=== PATIENT | male | born 1970 | race African-American/Black ===

== ENCOUNTER 2017-05-20 23:30 | Emergency (ER) | payer SELFPAY ==
[2017-05-21 00:53] LABS: ADD MAN DIFF? NO
[2017-05-21] MEDS: FAMOTIDINE 20 MG/2 ML VIAL IVP ×2 (00:54→01:32)
[2017-05-21] MEDS: ONDANSETRON PF 4 MG/2 ML VIAL. IV (00:54)
[2017-05-21 00:57] LABS: BASO # 0.1 x10^3/uL (0.0-0.2); BASO % 1 % (0-3); EOS % 0 % (0-3); HEMATOCRIT 46.7 % (39.0-53.0); HEMOGLOBIN 15.9 g/dL (13.0-17.5); LYMPH # 1.8 x10^3/uL (1.0-4.8); LYMPH % 16 % (24-48); MEAN CORPUSCULAR HEMOGLOBIN 29 pg (25-35); MEAN CORPUSCULAR HGB CONC 34 g/dL (31-37); MEAN CORPUSCULAR VOLUME 84 fL (79-100); MONO # 0.7 x10^3/uL (0.0-1.1); MONO % 6 % (0-9); NEUT # 9.1 x10^3uL (1.8-7.7); NEUT % 77 % (31-73); PLATELET COUNT 311 x10^3/uL (140-400); RED BLOOD COUNT 5.57 x10^6/uL (4.30-5.70); RED CELL DISTRIBUTION WIDTH 14.4 % (11.5-14.5); WHITE BLOOD COUNT 11.8 x10^3/uL (4.0-11.0)
[2017-05-21 01:03] LABS: ANION GAP 16 (6-14); BLOOD UREA NITROGEN 11 mg/dL (8-26); BUN/CREATININE RATIO 11 (6-20); CALCIUM 9.5 mg/dL (8.5-10.1); CARBON DIOXIDE 26 mmol/L (21-32); CHLORIDE 99 mmol/L (98-107); GFR 97.8; GLUCOSE 138 mg/dL (70-99); POTASSIUM 4.1 mmol/L (3.5-5.1); SODIUM 141 mmol/L (136-145)
[2017-05-21 01:10] LABS: ALBUMIN 4.4 g/dL (3.4-5.0); ALBUMIN/GLOBULIN RATIO 0.8 (1.0-1.7); ALK PHOS 153 U/L (46-116); ALT (SGPT) 43 U/L (16-63); AST (SGOT) 30 U/L (15-37); TOTAL BILIRUBIN 0.8 mg/dL (0.2-1.0); TOTAL PROTEIN 9.7 g/dL (6.4-8.2)
[2017-05-21 01:12] LABS: TROPONINI < 0.017 ng/mL (0.000-0.055)
[2017-05-21 01:35] LABS: LIPASE 266 U/L (73-393)
== END 2017-05-21 02:02 | disposition home or self-care (01) ==
LOC: ER 05-21 02:02
DX: R11.2 Nausea with vomiting, unspecified (principal); R10.33 Periumbilical pain; F41.9 Anxiety disorder, unspecified; F32.9 Major depressive disorder, single episode, unspecified; I10 Essential (primary) hypertension; G89.29 Other chronic pain; Z88.0 Allergy status to penicillin; Z88.5 Allergy status to narcotic agent; Z91.030 Bee allergy status; Z91.02 Food additives allergy status
CPT/HCPCS: 36415; 80053; 83690; 84484; 85025; 96374; 96375; 96376; 99284-25; 99285; J2405; S0028

== ENCOUNTER 2018-09-08 10:56 | Inpatient (IN) | payer MEDICAID, MEDICARE, SELFPAY ==
[~2018-09-08] VITALS: Ht 182.9 cm; Wt 122.0 kg
[~2018-09-08 10:56] MED LIST: CYCL10TA2 PO; DULO60CA6 PO; FAMO-63 PO; GABA800T5 PO; IBUP-1060 PO; ONDA4TAB7 PO
[2018-09-08] MEDS ORDERED: ONDANSETRON PF 4 MG/2 ML VIAL. IV ONE (11:15)
[2018-09-08] MEDS ORDERED: fentaNYL PF VIAL 100 MCG/2 ML VIAL IV ONE ×2 (11:15→12:45)
--- NOTE | 2018-09-08 11:26 | PHYS DOC ---
Past Medical History Past Medical History: Anxiety, Bronchitis, Depression, Hypertension, Other Additional Past Medical Histor: CHRONIC BACK PAIN (EBONY SERNA APRN) Past Surgical History: Other Additional Past Surgical Histo: KNEE, lumbar fusion (EBONY SERNA APRN) Alcohol Use: None Drug Use: None (EBONY SERNA APRN) Adult General Chief Complaint Chief Complaint: TESTICULAR PAIN OR INJURY HPI HPI Patient is a 48 year old male with history of hypertension, depression, anxiety, who presents to the ED today complaining of moderate pain to the left groin that began this morning after he fell down 2 steps. He states he was going to the bathroom when he slid on a towel on the staircase falling stretching his left leg outward. Patient denies any loss of consciousness. Denies any difficulty voiding or hematuria. Denies any back pain. He states his groin pain is worse on extension of the leg. (EBONY SERNA APRN) Review of Systems Review of Systems Constitutional: Denies fever or chills [] Eyes: Denies change in visual acuity, redness, or eye pain [] HENT: Denies nasal congestion or sore throat [] Respiratory: Denies cough or shortness of breath [] Cardiovascular: No additional information not addressed in HPI [] GI: Denies abdominal pain, nausea, vomiting, bloody stools or diarrhea [] : Denies dysuria or hematuria [] Male :reports left groin pain Musculoskeletal: Denies back pain or joint pain [] Integument: Denies rash or skin lesions [] Neurologic: Denies headache, focal weakness or sensory changes [] All other systems were reviewed and found to be within normal limits, except as documented in this note. (EBONY SERNA APRN) Current Medications Current Medications Current Medications Medications (Trade) Dose Ordered Sig/Mariah Start Time Stop Time Status Last Admin Dose Admin Diazepam (Valium) 5 mg 1X ONCE 09/08/18 14:15 09/08/18 14:18 DC 09/08/18 14:49 5 MG Fentanyl Citrate (Fentanyl 2ml Vial) 50 mcg 1X ONCE 09/08/18 12:45 09/08/18 12:46 DC 09/08/18 13:02 50 MCG Info (CONTRAST GIVEN -- Rx MONITORING) 1 each PRN DAILY PRN 09/08/18 12:15 09/10/18 12:14 Iohexol (Omnipaque 300 Mg/ml) 75 ml 1X ONCE 09/08/18 12:15 09/08/18 12:16 DC 09/08/18 12:33 75 ML Morphine Sulfate (Morphine Sulfate) 5 mg 1X ONCE 09/08/18 14:15 09/08/18 14:18 DC 09/08/18 14:49 5 MG Ondansetron HCl (Zofran) 4 mg 1X ONCE 09/08/18 11:15 09/08/18 11:27 DC 09/08/18 11:39 4 MG Sodium Chloride 1,000 ml @ 100 mls/hr Q10H 09/08/18 14:52 09/08/18 14:52 100 MLS/HR (BROOKLYN VARELA MD) Allergies Allergies Allergies Coded Allergies Type Severity Reaction Last Updated Verified Penicillins Allergy Intermediate 01/26/15 No chocolate flavor Allergy Intermediate 05/01/17 No venom-honey bee Allergy Intermediate 01/26/15 No (BROOKLYN VARELA MD) Physical Exam Physical Exam Constitutional: Well developed, well nourished, no acute distress, non-toxic appearance. [] HENT: Normocephalic, atraumatic, bilateral external ears normal, oropharynx moist, no oral exudates, nose normal. [] Eyes: PERRLA, EOMI, conjunctiva normal, no discharge. [] Neck: Normal range of motion, no tenderness, supple, no stridor. [] Cardiovascular:Heart rate regular rhythm, no murmur [] Lungs & Thorax: Bilateral breath sounds clear to auscultation [] Abdomen: Bowel sounds normal, soft, no tenderness, no masses, no pulsatile masses. [] Male : external scrotum with no acute findings. Two descended testicles. No testicular masses. Tenderness on palpation of the left groin region. Skin: Warm, dry, no erythema, no rash. [] Back: No tenderness, no CVA tenderness. [] Extremities: No tenderness, no cyanosis, no clubbing, ROM intact, no edema. [] Neurologic: Alert and oriented X 3, normal motor function, normal sensory function, no focal deficits noted. [] Psychologic: Affect normal, judgement normal, mood normal. [] (EBONY SERNA APRN) Current Patient Data Vital Signs Vital Signs Date Time Temp Pulse Resp B/P (MAP) Pulse Ox O2 Delivery O2 Flow Rate FiO2 09/08/18 14:00 74 118/68 (85) 96 Room Air 09/08/18 11:12 97.8 20 97.8 (BROOKLYN VARELA MD) Lab Values Laboratory Tests Test 09/08/18 11:30 09/08/18 13:15 White Blood Count 7.9 x10^3/uL (4.0-11.0) Red Blood Count 5.27 x10^6/uL (4.30-5.70) Hemoglobin 14.7 g/dL (13.0-17.5) Hematocrit 44.3 % (39.0-53.0) Mean Corpuscular Volume 84 fL (79-100) Mean Corpuscular Hemoglobin 28 pg (25-35) Mean Corpuscular Hemoglobin Concent 33 g/dL (31-37) Red Cell Distribution Width 14.3 % (11.5-14.5) Platelet Count 254 x10^3/uL (140-400) Neutrophils (%) (Auto) 61 % (31-73) Lymphocytes (%) (Auto) 30 % (24-48) Monocytes (%) (Auto) 7 % (0-9) Eosinophils (%) (Auto) 2 % (0-3) Basophils (%) (Auto) 1 % (0-3) Neutrophils # (Auto) 4.8 x10^3uL (1.8-7.7) Lymphocytes # (Auto) 2.3 x10^3/uL (1.0-4.8) Monocytes # (Auto) 0.6 x10^3/uL (0.0-1.1) Eosinophils # (Auto) 0.1 x10^3/uL (0.0-0.7) Basophils # (Auto) 0.1 x10^3/uL (0.0-0.2) Sodium Level 140 mmol/L (136-145) Potassium Level 4.2 mmol/L (3.5-5.1) Chloride Level 101 mmol/L (98-107) Carbon Dioxide Level 30 mmol/L (21-32) Anion Gap 9 (6-14) Blood Urea Nitrogen 12 mg/dL (8-26) Creatinine 1.1 mg/dL (0.7-1.3) Estimated GFR (Cockcroft-Gault) 87.2 BUN/Creatinine Ratio 11 (6-20) Glucose Level 143 mg/dL (70-99) H Calcium Level 9.7 mg/dL (8.5-10.1) Iron Level 74 ug/dL (65-175) Total Iron Binding Capacity 388 ug/dL (250-450) Iron Saturation 19 % (15-34) Total Bilirubin 0.6 mg/dL (0.2-1.0) Aspartate Amino Transferase (AST) 82 U/L (15-37) H Alanine Aminotransferase (ALT) 135 U/L (16-63) H Alkaline Phosphatase 124 U/L (46-116) H Total Protein 8.6 g/dL (6.4-8.2) H Albumin 4.0 g/dL (3.4-5.0) Albumin/Globulin Ratio 0.9 (1.0-1.7) L Lipase 901 U/L (73-393) H Ethyl Alcohol Level < 10 mg/dL (0-10) Urine Collection Type Unknown Urine Color Yellow Urine Clarity Clear Urine pH 6.5 Urine Specific [place] >=1.030 Urine Protein Negative mg/dL (NEG-TRACE) Urine Glucose (UA) Negative mg/dL (NEG) Urine Ketones (Stick) Negative mg/dL (NEG) Urine Blood Negative (NEG) Urine Nitrite Negative (NEG) Urine Bilirubin Negative (NEG) Urine Urobilinogen Dipstick 1.0 mg/dL (0.2 mg/dL) Urine Leukocyte Esterase Negative (NEG) Urine RBC Rare /HPF (0-2) Urine WBC 0 /HPF (0-4) Urine Squamous Epithelial Cells Occ /LPF Urine Bacteria 0 /HPF (0-FEW) Urine Opiates Screen Pos (NEG) Urine Methadone Screen Neg (NEG) Urine Barbiturates Neg (NEG) Urine Phencyclidine Screen Neg (NEG) Urine Amphetamine/Methamphetamine Neg (NEG) Urine Benzodiazepines Screen Neg (NEG) Urine Cocaine Screen Neg (NEG) Urine Cannabinoids Screen Neg (NEG) Urine Ethyl Alcohol Neg (NEG) Laboratory Tests 09/08/18 11:30 Laboratory Tests 09/08/18 11:30 (BROOKLYN VARELA MD) Lab Values Laboratory Tests Test 09/08/18 11:30 09/08/18 13:15 White Blood Count 7.9 x10^3/uL (4.0-11.0) Red Blood Count 5.27 x10^6/uL (4.30-5.70) Hemoglobin 14.7 g/dL (13.0-17.5) Hematocrit 44.3 % (39.0-53.0) Mean Corpuscular Volume 84 fL (79-100) Mean Corpuscular Hemoglobin 28 pg (25-35) Mean Corpuscular Hemoglobin Concent 33 g/dL (31-37) Red Cell Distribution Width 14.3 % (11.5-14.5) Platelet Count 254 x10^3/uL (140-400) Neutrophils (%) (Auto) 61 % (31-73) Lymphocytes (%) (Auto) 30 % (24-48) Monocytes (%) (Auto) 7 % (0-9) Eosinophils (%) (Auto) 2 % (0-3) Basophils (%) (Auto) 1 % (0-3) Neutrophils # (Auto) 4.8 x10^3uL (1.8-7.7) Lymphocytes # (Auto) 2.3 x10^3/uL (1.0-4.8) Monocytes # (Auto) 0.6 x10^3/uL (0.0-1.1) Eosinophils # (Auto) 0.1 x10^3/uL (0.0-0.7) Basophils # (Auto) 0.1 x10^3/uL (0.0-0.2) Sodium Level 140 mmol/L (136-145) Potassium Level 4.2 mmol/L (3.5-5.1) Chloride Level 101 mmol/L (98-107) Carbon Dioxide Level 30 mmol/L (21-32) Anion Gap 9 (6-14) Blood Urea Nitrogen 12 mg/dL (8-26) Creatinine 1.1 mg/dL (0.7-1.3) Estimated GFR (Cockcroft-Gault) 87.2 BUN/Creatinine Ratio 11 (6-20) Glucose Level 143 mg/dL (70-99) H Calcium Level 9.7 mg/dL (8.5-10.1) Iron Level 74 ug/dL (65-175) Total Iron Binding Capacity 388 ug/dL (250-450) Iron Saturation 19 % (15-34) Total Bilirubin 0.6 mg/dL (0.2-1.0) Aspartate Amino Transferase (AST) 82 U/L (15-37) H Alanine Aminotransferase (ALT) 135 U/L (16-63) H Alkaline Phosphatase 124 U/L (46-116) H Total Protein 8.6 g/dL (6.4-8.2) H Albumin 4.0 g/dL (3.4-5.0) Albumin/Globulin Ratio 0.9 (1.0-1.7) L Lipase 901 U/L (73-393) H Ethyl Alcohol Level < 10 mg/dL (0-10) Urine Collection Type Unknown Urine Color Yellow Urine Clarity Clear Urine pH 6.5 Urine Specific [place] >=1.030 Urine Protein Negative mg/dL (NEG-TRACE) Urine Glucose (UA) Negative mg/dL (NEG) Urine Ketones (Stick) Negative mg/dL (NEG) Urine Blood Negative (NEG) Urine Nitrite Negative (NEG) Urine Bilirubin Negative (NEG) Urine Urobilinogen Dipstick 1.0 mg/dL (0.2 mg/dL) Urine Leukocyte Esterase Negative (NEG) Urine RBC Rare /HPF (0-2) Urine WBC 0 /HPF (0-4) Urine Squamous Epithelial Cells Occ /LPF Urine Bacteria 0 /HPF (0-FEW) Urine Opiates Screen Pos (NEG) Urine Methadone Screen Neg (NEG) Urine Barbiturates Neg (NEG) Urine Phencyclidine Screen Neg (NEG) Urine Amphetamine/Methamphetamine Neg (NEG) Urine Benzodiazepines Screen Neg (NEG) Urine Cocaine Screen Neg (NEG) Urine Cannabinoids Screen Neg (NEG) Urine Ethyl Alcohol Neg (NEG) Laboratory Tests 09/08/18 11:30 Laboratory Tests 09/08/18 11:30 (EBONY SERNA APRN) EKG EKG [] (EBONY SERNA APRN) Radiology/Procedures Radiology/Procedures []PROCEDURE: CT ABD PELV W/ IV CONTRST ONLY Examination: CT of the abdomen pelvis with IV contrast HISTORY: History of fall, left testicular pain COMPARISON: None TECHNIQUE: Axial CT images of the abdomen pelvis were performed with IV contrast. Coronal and sagittal reformatted performed Exposure: One or more of the following individualized dose reduction techniques were utilized for this examination: 1. Automated exposure control 2. Adjustment of the mA and/or kV according to patient size 3. Use of iterative reconstruction technique FINDINGS: The bibasilar lungs are clear. No evidence of free air identified in the abdomen. There is diffuse decreased attenuation noted in the liver likely hepatic steatosis. Mild hepatomegaly. The visualized spleen, right adrenal grossly appears unremarkable. There is a small nodule identified in the left adrenal gland measuring 1 cm measuring 56 Hounsfield units. The small bowel is nondilated. Feces and gas noted in the colon. The visualized pancreas grossly appears unremarkable. Urinary bladder is mildly distended. The bilateral kidneys enhance symmetrically. The urinary bladder is mildly distended. The caliber of the aorta grossly appears unremarkable. Mild degenerative changes thoracolumbar spine. Posterior cervical fusion hardware identified at L3, L4, L5 vertebral levels with intervertebral disc spacers at L3-L4, L4-L5 vertebral levels. Laminectomy changes identified at these levels. IMPRESSION: 1. No acute intra-abdominal findings. 2. Hepatic steatosis. 3. 1 cm nodule identified in the left adrenal gland, difficult to characterize given the size. Follow-up nonemergent adrenal CT protocol can be considered. Electronically signed by: Josh Solano MD (09/08/2018 12:47 PM) [facility] DICTATED and SIGNED BY: JOSH SOLANO MD DATE: 09/08/18 1247 PROCEDURE: TESTICULAR/SCROTUM Testicular ultrasound dated 09/08/2018. No comparison available. Clinical data indication: Pain after fall. Left groin pain. FINDINGS: Right testicle measures 4.7 x 3.0 x 2.8 cm. Left testicle measures 4.4 x 3.3 x 2.6 cm. No focal testicular mass. Normal color Doppler flow and waveforms to both testicles. Epididymides are unremarkable. No significant hydrocele or varicocele. No apparent inguinal hernia or focal fluid collection. IMPRESSION: Negative testicular ultrasound. Electronically signed by: Pillo Castillo MD (09/08/2018 12:11 PM) [facility] DICTATED and SIGNED BY: PILLO CASTILLO MD DATE: 09/08/18 1211 (EBONY SERNA APRN) Course & Med Decision Making Course & Med Decision Making Pertinent Labs and Imaging studies reviewed. (See chart for details) This is a 48-year-old male patient who presents to the ED today complaining of left groin pain after falling down 2 steps. No loss of consciousness. Testicular/scrotal ultrasound is negative for any acute findings. CT of the abdomen and pelvic was negative for any acute findings. CBC with normal WBC, urine analysis is negative for blood or infection. Lipase 901. Patient denies an y history of alcohol abuse. CMP with AST of 82, ALT 135 ALK [address] Hollingsworth who accepted patient for admission. Routine consult placed for GI. (EBONY SERNA APRN) Course & Med Decision Making This patient was seen by an DORIE. I did not evaluate the patient unless otherwise specified. (BROOKLYN VARELA MD) Dragon Disclaimer Dragon Disclaimer This electronic medical record was generated, in whole or in part, using a voice recognition dictation system. (EBONY SERNA APRN) Departure Departure Impression: Primary Impression: Pancreatitis Additional Impressions: Strain of groin Fall down steps Disposition: 09 ADMITTED INPATIENT Condition: STABLE Referrals: NO PCP (PCP) Problem Qualifiers Primary Impression: Pancreatitis Chronicity: acute Pancreatitis type: alcohol induced Acute pancreatitis complication: unspecified Qualified Codes: K85.20 - Alcohol induced acute pancreatitis without necrosis or infection Additional Impressions: Strain of groin Encounter type: initial encounter Laterality: left Qualified Codes: S76.212A - Strain of adductor muscle, fascia and tendon of left thigh, ini tial encounter Fall down steps Encounter type: initial encounter Qualified Codes: W10.8XXA - Fall (on) (from) other stairs and steps, initial encounter EBONY SERNA APRN September 08, 2018 11:25 BROOKLYN VARELA MD September 08, 2018 18:45
[2018-09-08 11:40] LABS: BASO # 0.1 x10^3/uL (0.0-0.2); BASO % 1 % (0-3); EOS # 0.1 x10^3/uL (0.0-0.7); EOS % 2 % (0-3); HEMATOCRIT 44.3 % (39.0-53.0); HEMOGLOBIN 14.7 g/dL (13.0-17.5); LYMPH # 2.3 x10^3/uL (1.0-4.8); LYMPH % 30 % (24-48); MEAN CORPUSCULAR HEMOGLOBIN 28 pg (25-35); MEAN CORPUSCULAR HGB CONC 33 g/dL (31-37); MEAN CORPUSCULAR VOLUME 84 fL (79-100); MONO # 0.6 x10^3/uL (0.0-1.1); MONO % 7 % (0-9); NEUT # 4.8 x10^3uL (1.8-7.7); NEUT % 61 % (31-73); PLATELET COUNT 254 x10^3/uL (140-400); RED BLOOD COUNT 5.27 x10^6/uL (4.30-5.70); RED CELL DISTRIBUTION WIDTH 14.3 % (11.5-14.5); WHITE BLOOD COUNT 7.9 x10^3/uL (4.0-11.0)
[2018-09-08 11:49] LABS: CALCIUM 9.7 mg/dL (8.5-10.1); CREATININE 1.1 mg/dL (0.7-1.3); GFR 87.2; POTASSIUM 4.2 mmol/L (3.5-5.1)
[2018-09-08 11:55] LABS: ALBUMIN/GLOBULIN RATIO 0.9 (1.0-1.7); TOTAL BILIRUBIN 0.6 mg/dL (0.2-1.0); TOTAL PROTEIN 8.6 g/dL (6.4-8.2)
--- NOTE | 2018-09-08 12:14 | RAD ---
Testicular ultrasound dated 09/08/2018. No comparison available. Clinical data indication: Pain after fall. Left groin pain. FINDINGS: Right testicle measures 4.7 x 3.0 x 2.8 cm. Left testicle measures 4.4 x 3.3 x 2.6 cm. No focal testicular mass. Normal color Doppler flow and waveforms to both testicles. Epididymides are unremarkable. No significant hydrocele or varicocele. No apparent inguinal hernia or focal fluid collection. IMPRESSION: Negative testicular ultrasound. Electronically signed by: Pillo Castillo MD (09/08/2018 12:11 PM) [facility]
[2018-09-08] MEDS ORDERED: CONTRAST GIVEN. MC PRN (12:15)
[2018-09-08] MEDS ORDERED: IOHEXOL 300 MG/ML 100ML VIAL. IV ONE (12:15)
--- NOTE | 2018-09-08 12:50 | RAD ---
Examination: CT of the abdomen pelvis with IV contrast HISTORY: History of fall, left testicular pain COMPARISON: None TECHNIQUE: Axial CT images of the abdomen pelvis were performed with IV contrast. Coronal and sagittal reformatted performed Exposure: One or more of the following individualized dose reduction techniques were utilized for this examination: 1. Automated exposure control 2. Adjustment of the mA and/or kV according to patient size 3. Use of iterative reconstruction technique FINDINGS: The bibasilar lungs are clear. No evidence of free air identified in the abdomen. There is diffuse decreased attenuation noted in the liver likely hepatic steatosis. Mild hepatomegaly. The visualized spleen, right adrenal grossly appears unremarkable. There is a small nodule identified in the left adrenal gland measuring 1 cm measuring 56 Hounsfield units. The small bowel is nondilated. Feces and gas noted in the colon. The visualized pancreas grossly appears unremarkable. Urinary bladder is mildly distended. The bilateral kidneys enhance symmetrically. The urinary bladder is mildly distended. The caliber of the aorta grossly appears unremarkable. Mild degenerative changes thoracolumbar spine. Posterior cervical fusion hardware identified at L3, L4, L5 vertebral levels with intervertebral disc spacers at L3-L4, L4-L5 vertebral levels. Laminectomy changes identified at these levels. IMPRESSION: 1. No acute intra-abdominal findings. 2. Hepatic steatosis. 3. 1 cm nodule identified in the left adrenal gland, difficult to characterize given the size. Follow-up nonemergent adrenal CT protocol can be considered. Electronically signed by: Josh Solano MD (09/08/2018 12:47 PM) [place] [id number]
[2018-09-08 13:23] LABS: BILIRUBIN,URINE NEGATIVE (NEG); CLARITY,URINE CLEAR; COLOR,URINE YELLOW; NITRITE,URINE NEGATIVE (NEG); PH,URINE 6.5; PROTEIN,URINE NEGATIVE (NEG-TRACE)
[2018-09-08 13:27] LABS: BARBITURATES NEG (NEG); BENZODIAZEPINES NEG (NEG); CANNABINOIDS NEG (NEG); COCAINE NEG (NEG); METHADONE NEG (NEG); OPIATES POS (NEG); PHENCYCLIDINE NEG (NEG)
[2018-09-08 13:37] LABS: AMPHETAMINE/METHAMPHETAMINE NEG (NEG)
[2018-09-08 13:46] LABS: BACTERIA,URINE 0 /HPF (0-FEW); RBC,URINE RARE /HPF (0-2); SQUAMOUS EPITHELIAL CELL,UR OCC /LPF; WBC,URINE 0 /HPF (0-4)
[2018-09-08] MEDS ORDERED: MORPHINE SULFATE 10 MG/ML VIAL. IV ONE (14:15)
[2018-09-08] MEDS ORDERED: diazePAM 5 MG TABLET PO ONE (14:15)
[2018-09-08] MEDS: IV NORMAL SALINE 1000ML BAG 1,000 ML IV SCH (14:52)
[2018-09-08] MEDS ORDERED: LORazepam 0.5 MG TABLET PO PRN (15:00)
[2018-09-08] MEDS ORDERED: cloNIDine HCL 0.1 MG TABLET PO PRN (15:00)
[2018-09-08] MEDS ORDERED: SODIUM PHOSPHATES 19/7GM 133 ML ENEMA. PR PRN (15:00)
[2018-09-08] MEDS ORDERED: guaiFENesin ORAL 200 MG/10 ML LIQUID. PO PRN (15:00)
[2018-09-08] MEDS ORDERED: ALBUTEROL SULFATE 2.5 MG/3 ML NEBU. NEB PRN (15:00)
[2018-09-08] MEDS ORDERED: ONDANSETRON PF 4 MG/2 ML VIAL. IV PRN ×2 (15:00→16:15)
[2018-09-08] MEDS ORDERED: MAG HYDROX/ALUMINUM HYD/SIMETH 30 ML ORAL.SUSP PO PRN (15:00)
[2018-09-08] MEDS ORDERED: ACETAMINOPHEN 325 MG TABLET. PO PRN ×2 (15:00→16:15)
[2018-09-08] MEDS ORDERED: ZOLPIDEM 5 MG TABLET. PO PRN (15:00)
[2018-09-08] MEDS ORDERED: DOCUSATE SODIUM 100 MG CAPSULE. PO PRN (15:00)
[2018-09-08] MEDS ORDERED: IV NORMAL SALINE 1000ML BAG 1,000 ML IV ONE (16:15)
[2018-09-08 16:20] VITALS: BP 121/70
[2018-09-08] MEDS: MORPHINE SULFATE 4 MG/ML VIAL. IV PRN ×3 (16:31→21:08)
[2018-09-08] MEDS: ENOXAPARIN 40 MG/0.4 ML SYRINGE. SQ SCH (16:47)
--- NOTE | 2018-09-08 17:50 | PDOC2 ---
GI CONSULT Reason For Consult: Elevated lipase HPI: HPI: 48 y/o male admitted through ER. Fell down the steps last night and did the splits, has significant burning pain to left side into left groin. GI-de leon, he reports a variety of symptoms. He has recent had some reflux that is not really improved w/ Tums. No dysphagia. Occasional nausea and dizziness, but no vomiting. Tolerating diet, but eating causes "sharp" mid right abdominal and RLQ pain - and after thinking about it, some LLQ pain too. This pain, which began ~1 week ago without precipitating events, is also worse with stooling. Long history of "slow bowels" (says it takes a long time to have a bowel movement) but for the past week has had to strain. Describes stools as formed and long. This week, he has also noted associated bright red blood - on the tissue and surrounding the stool. No melena. Has gained weight. Good appetite - just ate something his family brought to his room. He has been fatigued - sleeping more during the day but awake during the night. EGD w/ Dr. Ocampo in 07/2002 for abd pain and n/v showed normal esophagus, H. pylori negative gastritis and two non-bleeding superficial duodenal ulcers. He remembers taking Nexium for awhile. No previous colonoscopy. Denies liver, pancreas, and GB history. On disability for chronic back pain. Takes morphine, Flexeril, and Neurontin - no NSAIDs. PMH: PMH: HTN, anxiety/depression, chronic pain bilateral knee surgeries, lumbar fusion FH: Family History: Cancer (mother and MGM - unknown kind), Other (sister - gallbladder disease) Social History: Smoke: Quit ALCOHOL: other (some heavy drinking "back in the day," now none) Drugs: Other (marijuana in the past, none now) ROS: GEN: Denies fevers, chills, sweats HEENT: Denies blurred vision, sore throat CV: Denies chest pain RESP: Denies shortness of air, cough GI: Per HPI : Denies hematuria, dysuria ENDO: +weight gain NEURO: Denies confusion, dizziness MSK: Denies weakness, joint pain/swelling SKIN: Denies jaundice, pruritus Vitals: Vitals: Vital Signs Date Time Temp Pulse Resp B/P (MAP) Pulse Ox O2 Delivery O2 Flow Rate FiO2 5/15/19 17:25 97 Room Air 09/08/18 16:20 97.9 74 20 121/70 (87) 97.9 Labs: Labs: Laboratory Tests Test 09/08/18 11:30 09/08/18 13:15 White Blood Count 7.9 x10^3/uL (4.0-11.0) Red Blood Count 5.27 x10^6/uL (4.30-5.70) Hemoglobin 14.7 g/dL (13.0-17.5) Hematocrit 44.3 % (39.0-53.0) Mean Corpuscular Volume 84 fL (79-100) Mean Corpuscular Hemoglobin 28 pg (25-35) Mean Corpuscular Hemoglobin Concent 33 g/dL (31-37) Red Cell Distribution Width 14.3 % (11.5-14.5) Platelet Count 254 x10^3/uL (140-400) Neutrophils (%) (Auto) 61 % (31-73) Lymphocytes (%) (Auto) 30 % (24-48) Monocytes (%) (Auto) 7 % (0-9) Eosinophils (%) (Auto) 2 % (0-3) Basophils (%) (Auto) 1 % (0-3) Neutrophils # (Auto) 4.8 x10^3uL (1.8-7.7) Lymphocytes # (Auto) 2.3 x10^3/uL (1.0-4.8) Monocytes # (Auto) 0.6 x10^3/uL (0.0-1.1) Eosinophils # (Auto) 0.1 x10^3/uL (0.0-0.7) Basophils # (Auto) 0.1 x10^3/uL (0.0-0.2) Sodium Level 140 mmol/L (136-145) Potassium Level 4.2 mmol/L (3.5-5.1) Chloride Level 101 mmol/L (98-107) Carbon Dioxide Level 30 mmol/L (21-32) Anion Gap 9 (6-14) Blood Urea Nitrogen 12 mg/dL (8-26) Creatinine 1.1 mg/dL (0.7-1.3) Estimated GFR (Cockcroft-Gault) 87.2 BUN/Creatinine Ratio 11 (6-20) Glucose Level 143 mg/dL (70-99) Calcium Level 9.7 mg/dL (8.5-10.1) Iron Level 74 ug/dL (65-175) Total Iron Binding Capacity 388 ug/dL (250-450) Iron Saturation 19 % (15-34) Total Bilirubin 0.6 mg/dL (0.2-1.0) Aspartate Amino Transf (AST/SGOT) 82 U/L (15-37) Alanine Aminotransferase (ALT/SGPT) 135 U/L (16-63) Alkaline Phosphatase 124 U/L (46-116) Total Protein 8.6 g/dL (6.4-8.2) Albumin 4.0 g/dL (3.4-5.0) Albumin/Globulin Ratio 0.9 (1.0-1.7) Lipase 901 U/L (73-393) Ethyl Alcohol Level < 10 mg/dL (0-10) Urine Collection Type Unknown Urine Color Yellow Urine Clarity Clear Urine pH 6.5 Urine Specific [place] >=1.030 Urine Protein Negative mg/dL (NEG-TRACE) Urine Glucose (UA) Negative mg/dL (NEG) Urine Ketones (Stick) Negative mg/dL (NEG) Urine Blood Negative (NEG) Urine Nitrite Negative (NEG) Urine Bilirubin Negative (NEG) Urine Urobilinogen Dipstick 1.0 mg/dL (0.2 mg/dL) Urine Leukocyte Esterase Negative (NEG) Urine RBC Rare /HPF (0-2) Urine WBC 0 /HPF (0-4) Urine Squamous Epithelial Cells Occ /LPF Urine Bacteria 0 /HPF (0-FEW) Urine Opiates Screen Pos (NEG) Urine Methadone Screen Neg (NEG) Urine Barbiturates Neg (NEG) Urine Phencyclidine Screen Neg (NEG) Urine Amphetamine/Methamphetamine Neg (NEG) Urine Benzodiazepines Screen Neg (NEG) Urine Cocaine Screen Neg (NEG) Urine Cannabinoids Screen Neg (NEG) Urine Ethyl Alcohol Neg (NEG) Allergies: Coded Allergies: Penicillins (Unverified Allergy, Intermediate, 01/26/15) chocolate flavor (Unverified Allergy, Intermediate, 05/01/17) venom-honey bee (Unverified Allergy, Intermediate, 01/26/15) Medications: Current Medications Medications (Trade) Dose Ordered Sig/Mariah Route PRN Reason Start Time Stop Time Status Last Admin Dose Admin Fentanyl Citrate (Fentanyl 2ml Vial) 50 mcg 1X ONCE IV 09/08/18 11:15 09/08/18 11:27 DC 09/08/18 11:39 Ondansetron HCl (Zofran) 4 mg 1X ONCE IV 09/08/18 11:15 09/08/18 11:27 DC 09/08/18 11:39 Iohexol (Omnipaque 300 Mg/ml) 75 ml 1X ONCE IV 09/08/18 12:15 09/08/18 12:16 DC 09/08/18 12:33 Fentanyl Citrate (Fentanyl 2ml Vial) 50 mcg 1X ONCE IV 09/08/18 12:45 09/08/18 12:46 DC 09/08/18 13:02 Morphine Sulfate (Morphine Sulfate) 5 mg 1X ONCE IV 09/08/18 14:15 09/08/18 14:18 DC 09/08/18 14:49 Diazepam (Valium) 5 mg 1X ONCE PO 09/08/18 14:15 09/08/18 14:18 DC 09/08/18 14:49 Sodium Chloride 1,000 ml @ 100 mls/hr Q10H IV 09/08/18 14:52 09/08/18 14:52 Enoxaparin Sodium (Lovenox 40mg Syringe) 40 mg Q24H SQ 09/08/18 16:00 09/08/18 16:47 Morphine Sulfate (Morphine Sulfate) 4 mg PRN Q2HR PRN IV PAIN 09/08/18 16:15 09/09/18 16:14 09/08/18 16:31 Imaging: Imaging: US IMPRESSION: Negative testicular ultrasound. CT A/P FINDINGS: The bibasilar lungs are clear. No evidence of free air identified in the abdomen. There is diffuse decreased attenuation noted in the liver likely hepatic steatosis. Mild hepatomegaly. The visualized spleen, right adrenal grossly appears unremarkable. There is a small nodule identified in the left adrenal gland measuring 1 cm measuring 56 Hounsfield units. The small bowel is nondilated. Feces and gas noted in the colon. The visualized pancreas grossly appears unremarkable. Urinary bladder is mildly distended. The bilateral kidneys enhance symmetrically. The urinary bladder is mildly distended. The caliber of the aorta grossly appears unremarkable. Mild degenerative changes thoracolumbar spine. Posterior cervical fusion hardware identified at L3, L4, L5 vertebral levels with intervertebral disc spacers at L3-L4, L4-L5 vertebral levels. Laminectomy changes identified at these levels. IMPRESSION: 1. No acute intra-abdominal findings. 2. Hepatic steatosis. 3. 1 cm nodule identified in the left adrenal gland, difficult to characterize given the size. Follow-up nonemergent adrenal CT protocol can be considered. PE: GEN: NAD, talkative HEENT: Atraumatic, PERRL LUNGS: CTAB HEART: RRR ABD: NABS, S/ND, most muscular left-sided tenderness, vague right-sided discomfort toward RLQ EXTREMITY: No edema SKIN: No rashes, no jaundice NEURO/PSYCH: A & O 3 A/P: A/P: Fall, left-sided pain Right-sided pain, change in bowel habits (straining w/ blood), nausea, dizziness, fatigue Abnormal LFTs, elevated lipase Acid reflux, h/o DUs Hepatic steatosis CRC screen - none, average risk Chronic pain on morphine -- Apparently tolerating PO now (ate food his family brought) - okay to continue regular diet. Unclear significance of lipase - reported pain (prior to fall) not typical for pancreatitis and pancreas unremarkable on CT report. Can check abd US tomorrow re: elevated LFTs. Note orders for Hepatitis profile. Try PPI w/ recent reflux and PUD history. Bleeding seems related to straining/constipation - ?hemorrhoids - try Miralax and consider Relistor, etc. w/ chronic use of pain meds. Could consider outpt colonoscopy. Other per Dr. Goldberg. LATOYA SOLANO September 08, 2018 17:50
[2018-09-08] MEDS: PANTOPRAZOLE 40 MG TABLET.DR. PO SCH (18:30)
[2018-09-08 19:00] VITALS: BP 124/65
[2018-09-08] MEDS: POLYETHYLENE GLYCOL 3350 17 GM PACKET. PO SCH (21:03)
--- NOTE | 2018-09-08 21:16 | PDOC1 ---
History and Physical Date of Admission Date of Admission 09/08/2018 Identification/Chief Complaint Chief Complaint my stomach hurts Problems: (1) Elevated lipase Source Source: Chart review, Patient History of Present Illness History of Present Illness Patient is a 48-year-old gentleman with past medical history of hypertension diabetes and dyslipidemia currently on statin therapy was initiated [employer] until this morning when apparently he slipped lost his footing when he is left leg gave out and apparently he did report he describes as a lateral split of his legs. He experienced severe pain after the incident and was unable to move much. Somewhat the patient ended up with a GI workup including a lipase level which was quite high but the patient denies epigastric pain he denies radiation to the back. Of note is that the patient had a recent viral infection but he denies any jaundice no travels outside the country no dietary transgressions either. He denies sick contacts. He denies chest pain palpitations no neurological deficits no peripheral edema noted either. No changes recently to his medications either. He complained of some testicular discomfort as part of his complaints due to this split that he did with negative findings on his workup in the emergency department. We were asked to admit the patient due to this elevated lipase. He seems to be in acute distress due to his groin area discomfort, no hematuria no dysuria reported, no cva tenderness. no fever or chills. plan of care explainied in detail. No other concerns voiced. he described a POP when he slid over to the side no obvious deformity to his extremities. Past Medical History Cardiovascular: HTN, Hyperlipidemia Pulmonary: No pertinent hx CENTRAL NERVOUS SYSTEM: Migraine Endocrine: No pertinent hx Family History Family History: Heart Disease Social History Smoke: Quit ALCOHOL: other (some heavy drinking "back in the day," now none) Drugs: Other (marijuana in the past, none now) Current Problem List Problem List Problems Medical Problems: (1) Fall down steps Status: Acute (2) Pancreatitis Status: Acute (3) Strain of groin Status: Acute Current Medications Current Medications Current Medications Medications (Trade) Dose Ordered Sig/Mariah Start Time Stop Time Status Last Admin Dose Admin Acetaminophen (Tylenol) 650 mg PRN Q4HRS PRN 09/08/18 16:15 09/09/18 16:14 Al Hydroxide/Mg Hydroxide (Mylanta Plus Xs) 30 ml PRN DAILY PRN 09/08/18 15:00 Albuterol Sulfate (Ventolin Neb Soln) 2.5 mg PRN Q4HRS PRN 09/08/18 15:00 Clonidine HCl (Catapres) 0.1 mg PRN Q6HRS PRN 09/08/18 15:00 Diazepam (Valium) 5 mg 1X ONCE 09/08/18 14:15 09/08/18 14:18 DC 09/08/18 14:49 5 MG Docusate Sodium (Colace) 100 mg PRN BID PRN 09/08/18 15:00 Enoxaparin Sodium (Lovenox 40mg Syringe) 40 mg Q24H 09/08/18 16:00 09/08/18 16:47 40 MG Fentanyl Citrate (Fentanyl 2ml Vial) 50 mcg 1X ONCE 09/08/18 12:45 09/08/18 12:46 DC 09/08/18 13:02 50 MCG Guaifenesin (Robitussin) 200 mg PRN Q4HRS PRN 09/08/18 15:00 Info (CONTRAST GIVEN -- Rx MONITORING) 1 each PRN DAILY PRN 09/08/18 12:15 09/10/18 12:14 Iohexol (Omnipaque 300 Mg/ml) 75 ml 1X ONCE 09/08/18 12:15 09/08/18 12:16 DC 09/08/18 12:33 75 ML Lorazepam (Ativan) 0.5 mg PRN Q4HRS PRN 09/08/18 15:00 Morphine Sulfate (Morphine Sulfate) 4 mg PRN Q2HR PRN 09/08/18 16:15 09/09/18 16:14 09/08/18 18:30 4 MG Ondansetron HCl (Zofran) 4 mg PRN Q8HRS PRN 09/08/18 16:15 09/09/18 16:14 Pantoprazole Sodium (Protonix) 40 mg DAILYAC 09/08/18 18:30 Polyethylene Glycol (miraLAX PACKET) 17 gm BID 09/08/18 21:00 Sodium Monofluorophosphate (Fleet Adult) 133 ml PRN DAILY PRN 09/08/18 15:00 Sodium Chloride 1,000 ml @ 125 mls/hr 1X ONCE 09/08/18 16:15 09/09/18 00:14 Zolpidem Tartrate (Ambien) 5 mg PRN QHS PRN 09/08/18 15:00 Allergies Allergies Allergies Coded Allergies Type Severity Reaction Last Updated Verified Penicillins Allergy Intermediate 01/26/15 No chocolate flavor Allergy Intermediate 05/01/17 No venom-honey bee Allergy Intermediate 01/26/15 No ROS Review of System CONSTITUTIONAL: No fever or chills EYES: No recent changes SKIN: No rash or itching CARDIOVASCULAR: No chest pain, syncope, palpitations, or edema RESPIRATORY: No SOB or cough GASTROINTESTINAL: No nausea, vomiting or abdominal pain NEUROLOGICAL: No headaches or weakness ENDOCRINE: No cold or heat intolerance GENITOURINARY: No urgency or frequency of urination MUSCULOSKELETAL: groin pain LYMPHATICS: No enlarged lymph nodes PSYCHIATRIC: No anxiety or depression Physical Exam Physical Exam GEN.: apparent distress. Alert and oriented. HEENT: Head is normocephalic, atraumatic NECK: Supple. LUNGS: Clear to auscultation. HEART: RRR, S1, S2 present. Peripheral pulses intact ABDOMEN: Soft, nontender. Positive bowel sounds. EXTREMITIES: Without any cyanosis. NEUROLOGIC: Normal speech, normal tone PSYCHIATRIC: Normal affect, normal mood. SKIN: No ulcerations Vitals Vitals Vital Signs Date Time Temp Pulse Resp B/P (MAP) Pulse Ox O2 Delivery O2 Flow Rate FiO2 09/08/18 19:10 97 Room Air 09/08/18 19:00 98.2 104 18 124/65 (84) 98.2 Labs Labs Laboratory Tests Test 09/08/18 11:30 09/08/18 13:15 White Blood Count 7.9 x10^3/uL (4.0-11.0) Red Blood Count 5.27 x10^6/uL (4.30-5.70) Hemoglobin 14.7 g/dL (13.0-17.5) Hematocrit 44.3 % (39.0-53.0) Mean Corpuscular Volume 84 fL (79-100) Mean Corpuscular Hemoglobin 28 pg (25-35) Mean Corpuscular Hemoglobin Concent 33 g/dL (31-37) Red Cell Distribution Width 14.3 % (11.5-14.5) Platelet Count 254 x10^3/uL (140-400) Neutrophils (%) (Auto) 61 % (31-73) Lymphocytes (%) (Auto) 30 % (24-48) Monocytes (%) (Auto) 7 % (0-9) Eosinophils (%) (Auto) 2 % (0-3) Basophils (%) (Auto) 1 % (0-3) Neutrophils # (Auto) 4.8 x10^3uL (1.8-7.7) Lymphocytes # (Auto) 2.3 x10^3/uL (1.0-4.8) Monocytes # (Auto) 0.6 x10^3/uL (0.0-1.1) Eosinophils # (Auto) 0.1 x10^3/uL (0.0-0.7) Basophils # (Auto) 0.1 x10^3/uL (0.0-0.2) Sodium Level 140 mmol/L (136-145) Potassium Level 4.2 mmol/L (3.5-5.1) Chloride Level 101 mmol/L (98-107) Carbon Dioxide Level 30 mmol/L (21-32) Anion Gap 9 (6-14) Blood Urea Nitrogen 12 mg/dL (8-26) Creatinine 1.1 mg/dL (0.7-1.3) Estimated GFR (Cockcroft-Gault) 87.2 BUN/Creatinine Ratio 11 (6-20) Glucose Level 143 mg/dL (70-99) Calcium Level 9.7 mg/dL (8.5-10.1) Iron Level 74 ug/dL (65-175) Total Iron Binding Capacity 388 ug/dL (250-450) Iron Saturation 19 % (15-34) Total Bilirubin 0.6 mg/dL (0.2-1.0) Aspartate Amino Transf (AST/SGOT) 82 U/L (15-37) Alanine Aminotransferase (ALT/SGPT) 135 U/L (16-63) Alkaline Phosphatase 124 U/L (46-116) Total Protein 8.6 g/dL (6.4-8.2) Albumin 4.0 g/dL (3.4-5.0) Albumin/Globulin Ratio 0.9 (1.0-1.7) Lipase 901 U/L (73-393) Ethyl Alcohol Level < 10 mg/dL (0-10) Hepatitis A IgM Antibody Nonreactive (Nonreactive) Hepatitis B Surface Antigen Nonreactive (Nonreactive) Hepatitis B Core IgM Antibody Nonreactive (Nonreactive) Hepatitis C IgG Antibody Nonreactive (Nonreactive) Urine Collection Type Unknown Urine Color Yellow Urine Clarity Clear Urine pH 6.5 Urine Specific [place] >=1.030 Urine Protein Negative mg/dL (NEG-TRACE) Urine Glucose (UA) Negative mg/dL (NEG) Urine Ketones (Stick) Negative mg/dL (NEG) Urine Blood Negative (NEG) Urine Nitrite Negative (NEG) Urine Bilirubin Negative (NEG) Urine Urobilinogen Dipstick 1.0 mg/dL (0.2 mg/dL) Urine Leukocyte Esterase Negative (NEG) Urine RBC Rare /HPF (0-2) Urine WBC 0 /HPF (0-4) Urine Squamous Epithelial Cells Occ /LPF Urine Bacteria 0 /HPF (0-FEW) Urine Opiates Screen Pos (NEG) Urine Methadone Screen Neg (NEG) Urine Barbiturates Neg (NEG) Urine Phencyclidine Screen Neg (NEG) Urine Amphetamine/Methamphetamine Neg (NEG) Urine Benzodiazepines Screen Neg (NEG) Urine Cocaine Screen Neg (NEG) Urine Cannabinoids Screen Neg (NEG) Urine Ethyl Alcohol Neg (NEG) Laboratory Tests Test 09/08/18 11:30 09/08/18 13:15 White Blood Count 7.9 x10^3/uL (4.0-11.0) Red Blood Count 5.27 x10^6/uL (4.30-5.70) Hemoglobin 14.7 g/dL (13.0-17.5) Hematocrit 44.3 % (39.0-53.0) Mean Corpuscular Volume 84 fL (79-100) Mean Corpuscular Hemoglobin 28 pg (25-35) Mean Corpuscular Hemoglobin Concent 33 g/dL (31-37) Red Cell Distribution Width 14.3 % (11.5-14.5) Platelet Count 254 x10^3/uL (140-400) Neutrophils (%) (Auto) 61 % (31-73) Lymphocytes (%) (Auto) 30 % (24-48) Monocytes (%) (Auto) 7 % (0-9) Eosinophils (%) (Auto) 2 % (0-3) Basophils (%) (Auto) 1 % (0-3) Neutrophils # (Auto) 4.8 x10^3uL (1.8-7.7) Lymphocytes # (Auto) 2.3 x10^3/uL (1.0-4.8) Monocytes # (Auto) 0.6 x10^3/uL (0.0-1.1) Eosinophils # (Auto) 0.1 x10^3/uL (0.0-0.7) Basophils # (Auto) 0.1 x10^3/uL (0.0-0.2) Sodium Level 140 mmol/L (136-145) Potassium Level 4.2 mmol/L (3.5-5.1) Chloride Level 101 mmol/L (98-107) Carbon Dioxide Level 30 mmol/L (21-32) Anion Gap 9 (6-14) Blood Urea Nitrogen 12 mg/dL (8-26) Creatinine 1.1 mg/dL (0.7-1.3) Estimated GFR (Cockcroft-Gault) 87.2 BUN/Creatinine Ratio 11 (6-20) Glucose Level 143 mg/dL (70-99) Calcium Level 9.7 mg/dL (8.5-10.1) Iron Level 74 ug/dL (65-175) Total Iron Binding Capacity 388 ug/dL (250-450) Iron Saturation 19 % (15-34) Total Bilirubin 0.6 mg/dL (0.2-1.0) Aspartate Amino Transf (AST/SGOT) 82 U/L (15-37) Alanine Aminotransferase (ALT/SGPT) 135 U/L (16-63) Alkaline Phosphatase 124 U/L (46-116) Total Protein 8.6 g/dL (6.4-8.2) Albumin 4.0 g/dL (3.4-5.0) Albumin/Globulin Ratio 0.9 (1.0-1.7) Lipase 901 U/L (73-393) Ethyl Alcohol Level < 10 mg/dL (0-10) Hepatitis A IgM Antibody Nonreactive (Nonreactive) Hepatitis B Surface Antigen Nonreactive (Nonreactive) Hepatitis B Core IgM Antibody Nonreactive (Nonreactive) Hepatitis C IgG Antibody Nonreactive (Nonreactive) Urine Collection Type Unknown Urine Color Yellow Urine Clarity Clear Urine pH 6.5 Urine Specific [place] >=1.030 Urine Protein Negative mg/dL (NEG-TRACE) Urine Glucose (UA) Negative mg/dL (NEG) Urine Ketones (Stick) Negative mg/dL (NEG) Urine Blood Negative (NEG) Urine Nitrite Negative (NEG) Urine Bilirubin Negative (NEG) Urine Urobilinogen Dipstick 1.0 mg/dL (0.2 mg/dL) Urine Leukocyte Esterase Negative (NEG) Urine RBC Rare /HPF (0-2) Urine WBC 0 /HPF (0-4) Urine Squamous Epithelial Cells Occ /LPF Urine Bacteria 0 /HPF (0-FEW) Urine Opiates Screen Pos (NEG) Urine Methadone Screen Neg (NEG) Urine Barbiturates Neg (NEG) Urine Phencyclidine Screen Neg (NEG) Urine Amphetamine/Methamphetamine Neg (NEG) Urine Benzodiazepines Screen Neg (NEG) Urine Cocaine Screen Neg (NEG) Urine Cannabinoids Screen Neg (NEG) Urine Ethyl Alcohol Neg (NEG) VTE Prophylaxis Ordered VTE Prophylaxis Devices: Yes VTE Pharmacological Prophylaxi: No Assessment/Plan Assessment/Plan Groin pain most likely secondary to musculoskeletal discomfort Elevated lipase etiology undetermined given the lack of symptoms compatible with pancreatitis Transaminitis which most likely is related to his body habitus and hepaticus steatosis. History of hypertension History of diabetes History of dyslipidemia on statin therapy Plan: Resume home medications We'll consult GI In light of the absence of symptoms patient may have a diet We'll give muscle relaxants and pain medications to alleviate his discomfort Reassess in the a.m. DVT prophylaxis with SCD and teds Further recommendations based on the clinical course JEREMIAH GUEVARA MD September 08, 2018 21:16
[2018-09-08] MEDS ORDERED: tiZANidine 4 MG TABLET. PO PRN (22:45)
[2018-09-08 23:00] VITALS: BP 108/59
[2018-09-09] MEDS: IV NORMAL SALINE 1000ML BAG 1,000 ML IV SCH ×3 (00:52→21:20)
[2018-09-09 03:00] VITALS: BP 127/73
[2018-09-09] MEDS: PANTOPRAZOLE 40 MG TABLET.DR. PO SCH (06:06)
[2018-09-09 07:00] VITALS: BP 118/73
[2018-09-09] MEDS: POLYETHYLENE GLYCOL 3350 17 GM PACKET. PO SCH ×2 (08:51→21:19)
--- NOTE | 2018-09-09 09:01 | PDOC ---
PROGRESS NOTES Chief Complaint Chief Complaint Fall, left-sided pain Right-sided pain, change in bowel habits (straining w/ blood), nausea, dizziness, fatigue Abnormal LFTs, elevated lipase Acid reflux, h/o DUs Hepatic steatosis Chronic pain on morphine History of Present Illness History of Present Illness 48 y/o male admitted through ER. Fell down the steps last night and did the splits, has significant burning pain to left side into left groin. Found with no abnormalities on testicular US and abdominal CT save for steatitis hepatosis. Seen by GI, related chronic constipation and BRBPR in his history as well. Found with Lipase of 900, however, ate food brought in from outside while NPO, no vomiting. Feeling better, lipase improved to normal today. Still with ALT/AST elevations. Hepatitis panel negative. Awaiting US this morning. Has an appetite. Vitals Vitals Vital Signs Date Time Temp Pulse Resp B/P (MAP) Pulse Ox O2 Delivery O2 Flow Rate FiO2 09/09/18 07:00 97.9 84 16 118/73 (88) 90 Room Air 97.9 Physical Exam General: Alert, Oriented X3, Cooperative Heart: Regular rate, Normal S1, Normal S2 Lungs: Clear Abdomen: Normal bowel sounds, Soft Extremities: No clubbing, No cyanosis Skin: No rashes, No breakdown Labs LABS Laboratory Tests Test 09/08/18 11:30 09/08/18 13:15 White Blood Count 7.9 x10^3/uL (4.0-11.0) Red Blood Count 5.27 x10^6/uL (4.30-5.70) Hemoglobin 14.7 g/dL (13.0-17.5) Hematocrit 44.3 % (39.0-53.0) Mean Corpuscular Volume 84 fL (79-100) Mean Corpuscular Hemoglobin 28 pg (25-35) Mean Corpuscular Hemoglobin Concent 33 g/dL (31-37) Red Cell Distribution Width 14.3 % (11.5-14.5) Platelet Count 254 x10^3/uL (140-400) Neutrophils (%) (Auto) 61 % (31-73) Lymphocytes (%) (Auto) 30 % (24-48) Monocytes (%) (Auto) 7 % (0-9) Eosinophils (%) (Auto) 2 % (0-3) Basophils (%) (Auto) 1 % (0-3) Neutrophils # (Auto) 4.8 x10^3uL (1.8-7.7) Lymphocytes # (Auto) 2.3 x10^3/uL (1.0-4.8) Monocytes # (Auto) 0.6 x10^3/uL (0.0-1.1) Eosinophils # (Auto) 0.1 x10^3/uL (0.0-0.7) Basophils # (Auto) 0.1 x10^3/uL (0.0-0.2) Sodium Level 140 mmol/L (136-145) Potassium Level 4.2 mmol/L (3.5-5.1) Chloride Level 101 mmol/L (98-107) Carbon Dioxide Level 30 mmol/L (21-32) Anion Gap 9 (6-14) Blood Urea Nitrogen 12 mg/dL (8-26) Creatinine 1.1 mg/dL (0.7-1.3) Estimated GFR (Cockcroft-Gault) 87.2 BUN/Creatinine Ratio 11 (6-20) Glucose Level 143 mg/dL (70-99) Calcium Level 9.7 mg/dL (8.5-10.1) Iron Level 74 ug/dL (65-175) Total Iron Binding Capacity 388 ug/dL (250-450) Iron Saturation 19 % (15-34) Total Bilirubin 0.6 mg/dL (0.2-1.0) Aspartate Amino Transf (AST/SGOT) 82 U/L (15-37) Alanine Aminotransferase (ALT/SGPT) 135 U/L (16-63) Alkaline Phosphatase 124 U/L (46-116) Total Protein 8.6 g/dL (6.4-8.2) Albumin 4.0 g/dL (3.4-5.0) Albumin/Globulin Ratio 0.9 (1.0-1.7) Lipase 901 U/L (73-393) Ethyl Alcohol Level < 10 mg/dL (0-10) Hepatitis A IgM Antibody Nonreactive (Nonreactive) Hepatitis B Surface Antigen Nonreactive (Nonreactive) Hepatitis B Core IgM Antibody Nonreactive (Nonreactive) Hepatitis C IgG Antibody Nonreactive (Nonreactive) Urine Collection Type Unknown Urine Color Yellow Urine Clarity Clear Urine pH 6.5 Urine Specific [place] >=1.030 Urine Protein Negative mg/dL (NEG-TRACE) Urine Glucose (UA) Negative mg/dL (NEG) Urine Ketones (Stick) Negative mg/dL (NEG) Urine Blood Negative (NEG) Urine Nitrite Negative (NEG) Urine Bilirubin Negative (NEG) Urine Urobilinogen Dipstick 1.0 mg/dL (0.2 mg/dL) Urine Leukocyte Esterase Negative (NEG) Urine RBC Rare /HPF (0-2) Urine WBC 0 /HPF (0-4) Urine Squamous Epithelial Cells Occ /LPF Urine Bacteria 0 /HPF (0-FEW) Urine Opiates Screen Pos (NEG) Urine Methadone Screen Neg (NEG) Urine Barbiturates Neg (NEG) Urine Phencyclidine Screen Neg (NEG) Urine Amphetamine/Methamphetamine Neg (NEG) Urine Benzodiazepines Screen Neg (NEG) Urine Cocaine Screen Neg (NEG) Urine Cannabinoids Screen Neg (NEG) Urine Ethyl Alcohol Neg (NEG) Assessment and Plan Assessmemt and Plan Problems Medical Problems: (1) Fall down steps Status: Acute (2) Pancreatitis Status: Acute (3) Strain of groin Status: Acute Comment Review of Relevant I have reviewed the following items ivonne (where applicable) has been applied. Labs Laboratory Tests Test 09/08/18 11:30 09/08/18 13:15 White Blood Count 7.9 x10^3/uL (4.0-11.0) Red Blood Count 5.27 x10^6/uL (4.30-5.70) Hemoglobin 14.7 g/dL (13.0-17.5) Hematocrit 44.3 % (39.0-53.0) Mean Corpuscular Volume 84 fL (79-100) Mean Corpuscular Hemoglobin 28 pg (25-35) Mean Corpuscular Hemoglobin Concent 33 g/dL (31-37) Red Cell Distribution Width 14.3 % (11.5-14.5) Platelet Count 254 x10^3/uL (140-400) Neutrophils (%) (Auto) 61 % (31-73) Lymphocytes (%) (Auto) 30 % (24-48) Monocytes (%) (Auto) 7 % (0-9) Eosinophils (%) (Auto) 2 % (0-3) Basophils (%) (Auto) 1 % (0-3) Neutrophils # (Auto) 4.8 x10^3uL (1.8-7.7) Lymphocytes # (Auto) 2.3 x10^3/uL (1.0-4.8) Monocytes # (Auto) 0.6 x10^3/uL (0.0-1.1) Eosinophils # (Auto) 0.1 x10^3/uL (0.0-0.7) Basophils # (Auto) 0.1 x10^3/uL (0.0-0.2) Sodium Level 140 mmol/L (136-145) Potassium Level 4.2 mmol/L (3.5-5.1) Chloride Level 101 mmol/L (98-107) Carbon Dioxide Level 30 mmol/L (21-32) Anion Gap 9 (6-14) Blood Urea Nitrogen 12 mg/dL (8-26) Creatinine 1.1 mg/dL (0.7-1.3) Estimated GFR (Cockcroft-Gault) 87.2 BUN/Creatinine Ratio 11 (6-20) Glucose Level 143 mg/dL (70-99) Calcium Level 9.7 mg/dL (8.5-10.1) Iron Level 74 ug/dL (65-175) Total Iron Binding Capacity 388 ug/dL (250-450) Iron Saturation 19 % (15-34) Total Bilirubin 0.6 mg/dL (0.2-1.0) Aspartate Amino Transf (AST/SGOT) 82 U/L (15-37) Alanine Aminotransferase (ALT/SGPT) 135 U/L (16-63) Alkaline Phosphatase 124 U/L (46-116) Total Protein 8.6 g/dL (6.4-8.2) Albumin 4.0 g/dL (3.4-5.0) Albumin/Globulin Ratio 0.9 (1.0-1.7) Lipase 901 U/L (73-393) Ethyl Alcohol Level < 10 mg/dL (0-10) Hepatitis A IgM Antibody Nonreactive (Nonreactive) Hepatitis B Surface Antigen Nonreactive (Nonreactive) Hepatitis B Core IgM Antibody Nonreactive (Nonreactive) Hepatitis C IgG Antibody Nonreactive (Nonreactive) Urine Collection Type Unknown Urine Color Yellow Urine Clarity Clear Urine pH 6.5 Urine Specific [place] >=1.030 Urine Protein Negative mg/dL (NEG-TRACE) Urine Glucose (UA) Negative mg/dL (NEG) Urine Ketones (Stick) Negative mg/dL (NEG) Urine Blood Negative (NEG) Urine Nitrite Negative (NEG) Urine Bilirubin Negative (NEG) Urine Urobilinogen Dipstick 1.0 mg/dL (0.2 mg/dL) Urine Leukocyte Esterase Negative (NEG) Urine RBC Rare /HPF (0-2) Urine WBC 0 /HPF (0-4) Urine Squamous Epithelial Cells Occ /LPF Urine Bacteria 0 /HPF (0-FEW) Urine Opiates Screen Pos (NEG) Urine Methadone Screen Neg (NEG) Urine Barbiturates Neg (NEG) Urine Phencyclidine Screen Neg (NEG) Urine Amphetamine/Methamphetamine Neg (NEG) Urine Benzodiazepines Screen Neg (NEG) Urine Cocaine Screen Neg (NEG) Urine Cannabinoids Screen Neg (NEG) Urine Ethyl Alcohol Neg (NEG) Laboratory Tests Test 09/08/18 11:30 09/08/18 13:15 White Blood Count 7.9 x10^3/uL (4.0-11.0) Red Blood Count 5.27 x10^6/uL (4.30-5.70) Hemoglobin 14.7 g/dL (13.0-17.5) Hematocrit 44.3 % (39.0-53.0) Mean Corpuscular Volume 84 fL (79-100) Mean Corpuscular Hemoglobin 28 pg (25-35) Mean Corpuscular Hemoglobin Concent 33 g/dL (31-37) Red Cell Distribution Width 14.3 % (11.5-14.5) Platelet Count 254 x10^3/uL (140-400) Neutrophils (%) (Auto) 61 % (31-73) Lymphocytes (%) (Auto) 30 % (24-48) Monocytes (%) (Auto) 7 % (0-9) Eosinophils (%) (Auto) 2 % (0-3) Basophils (%) (Auto) 1 % (0-3) Neutrophils # (Auto) 4.8 x10^3uL (1.8-7.7) Lymphocytes # (Auto) 2.3 x10^3/uL (1.0-4.8) Monocytes # (Auto) 0.6 x10^3/uL (0.0-1.1) Eosinophils # (Auto) 0.1 x10^3/uL (0.0-0.7) Basophils # (Auto) 0.1 x10^3/uL (0.0-0.2) Sodium Level 140 mmol/L (136-145) Potassium Level 4.2 mmol/L (3.5-5.1) Chloride Level 101 mmol/L (98-107) Carbon Dioxide Level 30 mmol/L (21-32) Anion Gap 9 (6-14) Blood Urea Nitrogen 12 mg/dL (8-26) Creatinine 1.1 mg/dL (0.7-1.3) Estimated GFR (Cockcroft-Gault) 87.2 BUN/Creatinine Ratio 11 (6-20) Glucose Level 143 mg/dL (70-99) Calcium Level 9.7 mg/dL (8.5-10.1) Iron Level 74 ug/dL (65-175) Total Iron Binding Capacity 388 ug/dL (250-450) Iron Saturation 19 % (15-34) Total Bilirubin 0.6 mg/dL (0.2-1.0) Aspartate Amino Transf (AST/SGOT) 82 U/L (15-37) Alanine Aminotransferase (ALT/SGPT) 135 U/L (16-63) Alkaline Phosphatase 124 U/L (46-116) Total Protein 8.6 g/dL (6.4-8.2) Albumin 4.0 g/dL (3.4-5.0) Albumin/Globulin Ratio 0.9 (1.0-1.7) Lipase 901 U/L (73-393) Ethyl Alcohol Level < 10 mg/dL (0-10) Hepatitis A IgM Antibody Nonreactive (Nonreactive) Hepatitis B Surface Antigen Nonreactive (Nonreactive) Hepatitis B Core IgM Antibody Nonreactive (Nonreactive) Hepatitis C IgG Antibody Nonreactive (Nonreactive) Urine Collection Type Unknown Urine Color Yellow Urine Clarity Clear Urine pH 6.5 Urine Specific [place] >=1.030 Urine Protein Negative mg/dL (NEG-TRACE) Urine Glucose (UA) Negative mg/dL (NEG) Urine Ketones (Stick) Negative mg/dL (NEG) Urine Blood Negative (NEG) Urine Nitrite Negative (NEG) Urine Bilirubin Negative (NEG) Urine Urobilinogen Dipstick 1.0 mg/dL (0.2 mg/dL) Urine Leukocyte Esterase Negative (NEG) Urine RBC Rare /HPF (0-2) Urine WBC 0 /HPF (0-4) Urine Squamous Epithelial Cells Occ /LPF Urine Bacteria 0 /HPF (0-FEW) Urine Opiates Screen Pos (NEG) Urine Methadone Screen Neg (NEG) Urine Barbiturates Neg (NEG) Urine Phencyclidine Screen Neg (NEG) Urine Amphetamine/Methamphetamine Neg (NEG) Urine Benzodiazepines Screen Neg (NEG) Urine Cocaine Screen Neg (NEG) Urine Cannabinoids Screen Neg (NEG) Urine Ethyl Alcohol Neg (NEG) Medications Current Medications Fentanyl Citrate (Fentanyl 2ml Vial) 50 mcg 1X ONCE IV Last administered on 09/08/18at 11:39; Start 09/08/18 at 11:15; Stop 09/08/18 at 11:27; Status DC Ondansetron HCl (Zofran) 4 mg 1X ONCE IV Last administered on 09/08/18at 11:39; Start 09/08/18 at 11:15; Stop 09/08/18 at 11:27; Status DC Iohexol (Omnipaque 300 Mg/ml) 75 ml 1X ONCE IV Last administered on 09/08/18at 12:33; Start 09/08/18 at 12:15; Stop 09/08/18 at 12:16; Status DC Info (CONTRAST GIVEN -- Rx MONITORING) 1 each PRN DAILY PRN MC SEE COMMENTS; Start 09/08/18 at 12:15; Stop 09/10/18 at 12:14 Fentanyl Citrate (Fentanyl 2ml Vial) 50 mcg 1X ONCE IV Last administered on 09/08/18at 13:02; Start 09/08/18 at 12:45; Stop 09/08/18 at 12:46; Status DC Morphine Sulfate (Morphine Sulfate) 5 mg 1X ONCE IV Last administered on 09/08/18at 14:49; Start 09/08/18 at 14:15; Stop 09/08/18 at 14:18; Status DC Diazepam (Valium) 5 mg 1X ONCE PO Last administered on 09/08/18at 14:49; Start 09/08/18 at 14:15; Stop 09/08/18 at 14:18; Status DC Sodium Chloride 1,000 ml @ 100 mls/hr Q10H IV Last administered on 09/09/18at 00:52; Start 09/08/18 at 14:52 Ondansetron HCl (Zofran) 4 mg PRN Q4HRS PRN IV NAUSEA/VOMITING; Start 09/08/18 at 15:00 Zolpidem Tartrate (Ambien) 5 mg PRN QHS PRN PO INSOMNIA; Start 09/08/18 at 15:00 Acetaminophen (Tylenol) 650 mg PRN Q4HRS PRN PO TEMP OVER 100.4F OR MILD PAIN; Start 09/08/18 at 15:00 Al Hydroxide/Mg Hydroxide (Mylanta Plus Xs) 30 ml PRN DAILY PRN PO HEARTBURN / GAS; Start 09/08/18 at 15:00 Clonidine HCl (Catapres) 0.1 mg PRN Q6HRS PRN PO SBP>160 OR DBP>90; Start 09/08/18 at 15:00 Sodium Monofluorophosphate (Fleet Adult) 133 ml PRN DAILY PRN WI CONSTIPATION; Start 09/08/18 at 15:00 Docusate Sodium (Colace) 100 mg PRN BID PRN PO CONSTIPATION; Start 09/08/18 at 15:00 Albuterol Sulfate (Ventolin Neb Soln) 2.5 mg PRN Q4HRS PRN NEB SHORTNESS OF BREATH; Start 09/08/18 at 15:00 Guaifenesin (Robitussin) 200 mg PRN Q4HRS PRN PO COUGH; Start 09/08/18 at 15:00 Lorazepam (Ativan) 0.5 mg PRN Q4HRS PRN PO ANXIETY / AGITATION; Start 09/08/18 at 15:00 Enoxaparin Sodium (Lovenox 40mg Syringe) 40 mg Q24H SQ Last administered on 08/25 09/12at 16:47; Start 09/08/18 at 16:00 Ondansetron HCl (Zofran) 4 mg PRN Q8HRS PRN IV NAUSEA/VOMITING; Start 09/08/18 at 16:15; Stop 09/09/18 at 16:14 Morphine Sulfate (Morphine Sulfate) 4 mg PRN Q2HR PRN IV PAIN Last administered on 09/08/18at 21:08; Start 09/08/18 at 16:15; Stop 09/09/18 at 16:14 Acetaminophen (Tylenol) 650 mg PRN Q4HRS PRN PO FEVER; Start 09/08/18 at 16:15; Stop 09/09/18 at 16:14 Sodium Chloride 1,000 ml @ 125 mls/hr 1X ONCE IV ; Start 09/08/18 at 16:15; Stop 09/09/18 at 00:14; Status DC Pantoprazole Sodium (Protonix) 40 mg DAILYAC PO Last administered on 09/09/18at 06:06; Start 09/08/18 at 18:30 Polyethylene Glycol (miraLAX PACKET) 17 gm BID PO Last administered on 09/08/18at 21:03; Start 09/08/18 at 21:00 Tizanidine HCl (Zanaflex) 4 mg PRN Q8HRS PRN PO MUSCLE SPASMS; Start 09/08/18 at 22:45 Active Scripts Active Pepcid (Famotidine) 20 Mg Tablet 20 Mg PO BID 14 Days Zofran (Ondansetron Hcl) 4 Mg Tablet 1 Tab PO Q6HRS Zofran (Ondansetron Hcl) 4 Mg Tablet 4 Mg PO BID PRN Ibuprofen 800 Mg Tablet 800 Mg PO PRN Q6HRS PRN Reported Cyclobenzaprine Hcl 10 Mg Tablet 1 Tab PO QHS Gabapentin 800 Mg Tablet 800 Mg PO BID Cymbalta (Duloxetine Hcl) 60 Mg Capsule.dr 1 Cap PO DAILY Vitals/I & O Vital Sign - Last 24 Hours 09/08/18 09/08/18 09/08/18 09/08/18 11:12 11:38 12:08 13:00 Temp 97.8 97.8 Pulse 80 78 78 80 Resp 20 B/P (MAP) 130/100 (110) 120/71 (87) 115/66 (82) 114/58 (76) Pulse Ox 100 96 95 96 O2 Delivery Room Air Room Air Room Air Room Air 09/08/18 09/08/18 09/08/18 09/08/18 14:00 16:20 16:30 16:31 Temp 97.9 97.9 Pulse 74 74 Resp 20 B/P (MAP) 118/68 (85) 121/70 (87) Pulse Ox 96 97 96 O2 Delivery Room Air Room Air Room Air Room Air 09/08/18 09/08/18 09/08/18 09/08/18 17:25 18:30 19:00 20:00 Temp 98.2 98.2 Pulse 104 Resp 18 B/P (MAP) 124/65 (84) Pulse Ox 97 97 97 O2 Delivery Room Air Room Air Room Air Room Air 09/08/18 09/08/18 09/08/18 09/09/18 21:08 21:38 23:00 03:00 Temp 97.6 98.0 97.6 98.0 Pulse 93 86 Resp 18 18 B/P (MAP) 108/59 (75) 127/73 (91) Pulse Ox 97 97 98 92 O2 Delivery Room Air Room Air Room Air 09/09/18 07:00 Temp 97.9 97.9 Pulse 84 Resp 16 B/P (MAP) 118/73 (88) Pulse Ox 90 O2 Delivery Room Air Intake and Output 09/08/18 09/08/18 09/09/18 14:59 22:59 06:59 Intake Total 300 ml 220 ml Balance 300 ml 220 ml HEATH GILMAN MD September 09, 2018 09:01
[2018-09-09 09:31] LABS: BASO % 0 % (0-3); EOS # 0.2 x10^3/uL (0.0-0.7); EOS % 2 % (0-3); HEMATOCRIT 43.3 % (39.0-53.0); HEMOGLOBIN 14.2 g/dL (13.0-17.5); LYMPH # 2.5 x10^3/uL (1.0-4.8); LYMPH % 34 % (24-48); MEAN CORPUSCULAR HEMOGLOBIN 28 pg (25-35); MEAN CORPUSCULAR HGB CONC 33 g/dL (31-37); MEAN CORPUSCULAR VOLUME 85 fL (79-100); MONO # 0.7 x10^3/uL (0.0-1.1); MONO % 10 % (0-9); NEUT # 3.9 x10^3uL (1.8-7.7); NEUT % 54 % (31-73); PLATELET COUNT 230 x10^3/uL (140-400); RED BLOOD COUNT 5.08 x10^6/uL (4.30-5.70); RED CELL DISTRIBUTION WIDTH 14.4 % (11.5-14.5); WHITE BLOOD COUNT 7.3 x10^3/uL (4.0-11.0)
[2018-09-09 09:35] LABS: ALBUMIN 3.5 g/dL (3.4-5.0); ALBUMIN/GLOBULIN RATIO 0.8 (1.0-1.7); CALCIUM 8.8 mg/dL (8.5-10.1); GFR 97.3; POTASSIUM 4.2 mmol/L (3.5-5.1); TOTAL BILIRUBIN 0.6 mg/dL (0.2-1.0); TOTAL PROTEIN 7.8 g/dL (6.4-8.2)
[2018-09-09 11:00] VITALS: BP 95/41
[2018-09-09] MEDS: MORPHINE SULFATE 4 MG/ML VIAL. IV PRN ×2 (11:04→15:54)
--- NOTE | 2018-09-09 11:26 | RAD ---
Right upper quadrant abdominal ultrasound, 09/09/2018: HISTORY: Elevated liver function tests and lipase level The gallbladder is within normal limits in size. There is no sonographic evidence of cholelithiasis. The pancreas and central retroperitoneum were obscured by overlying bowel. The common hepatic duct was not visualized. No intrahepatic bile or ductal dilatation is seen. The liver measures 20 cm in craniocaudad extent at the level of the right lobe. It is incompletely visualized due to the patient's body habitus. It demonstrates increased echogenicity most commonly due to fatty change. The right kidney is unremarkable. IMPRESSION: 1. No gallbladder abnormality is detected. 2. Mild hepatomegaly with hepatic steatosis. 3. Obscuration of the pancreas and central retroperitoneum by overlying bowel. Electronically signed by: Shankar White MD (09/09/2018 11:23 AM) [facility]
--- NOTE | 2018-09-09 11:31 | NUR ---
SW following for discharge planning. Discussed with RN, pt is from home. Pt having an abdomen ultrasound today. SW will continue to follow for any discharge planning needs.
--- NOTE | 2018-09-09 11:54 | PDOC ---
Subjective: Subjective: Left side hurts worse today. Right-side hurts when eating but tolerated PO. Passing a lot of gas, hasn't stooled. Objective: Vital Signs: Vital Signs Date Time Temp Pulse Resp B/P (MAP) Pulse Ox O2 Delivery O2 Flow Rate FiO2 09/09/18 11:04 90 Room Air 09/09/18 07:00 97.9 84 16 118/73 (88) 97.9 Labs: Laboratory Tests Test 09/08/18 13:15 09/09/18 08:24 Urine Collection Type Unknown Urine Color Yellow Urine Clarity Clear Urine pH 6.5 Urine Specific [place] >=1.030 Urine Protein Negative mg/dL Urine Glucose (UA) Negative mg/dL Urine Ketones (Stick) Negative mg/dL Urine Blood Negative Urine Nitrite Negative Urine Bilirubin Negative Urine Urobilinogen Dipstick 1.0 mg/dL Urine Leukocyte Esterase Negative Urine RBC Rare /HPF Urine WBC 0 /HPF Urine Squamous Epithelial Cells Occ /LPF Urine Bacteria 0 /HPF Urine Opiates Screen Pos Urine Methadone Screen Neg Urine Barbiturates Neg Urine Phencyclidine Screen Neg Urine Amphetamine/Methamphetamine Neg Urine Benzodiazepines Screen Neg Urine Cocaine Screen Neg Urine Cannabinoids Screen Neg Urine Ethyl Alcohol Neg White Blood Count 7.3 x10^3/uL Red Blood Count 5.08 x10^6/uL Hemoglobin 14.2 g/dL Hematocrit 43.3 % Mean Corpuscular Volume 85 fL Mean Corpuscular Hemoglobin 28 pg Mean Corpuscular Hemoglobin Concent 33 g/dL Red Cell Distribution Width 14.4 % Platelet Count 230 x10^3/uL Neutrophils (%) (Auto) 54 % Lymphocytes (%) (Auto) 34 % Monocytes (%) (Auto) 10 % Eosinophils (%) (Auto) 2 % Basophils (%) (Auto) 0 % Neutrophils # (Auto) 3.9 x10^3uL Lymphocytes # (Auto) 2.5 x10^3/uL Monocytes # (Auto) 0.7 x10^3/uL Eosinophils # (Auto) 0.2 x10^3/uL Basophils # (Auto) 0.0 x10^3/uL Sodium Level 140 mmol/L Potassium Level 4.2 mmol/L Chloride Level 103 mmol/L Carbon Dioxide Level 28 mmol/L Anion Gap 9 Blood Urea Nitrogen 10 mg/dL Creatinine 1.0 mg/dL Estimated GFR (Cockcroft-Gault) 97.3 BUN/Creatinine Ratio 10 Glucose Level 108 mg/dL Calcium Level 8.8 mg/dL Total Bilirubin 0.6 mg/dL Aspartate Amino Transf (AST/SGOT) 81 U/L Alanine Aminotransferase (ALT/SGPT) 128 U/L Alkaline Phosphatase 111 U/L Total Protein 7.8 g/dL Albumin 3.5 g/dL Albumin/Globulin Ratio 0.8 Lipase 117 U/L Imaging: Abd US 09/09 IMPRESSION: 1. No gallbladder abnormality is detected. 2. Mild hepatomegaly with hepatic steatosis. 3. Obscuration of the pancreas and central retroperitoneum by overlying bowel. PE: GEN: NAD - taking home medications LUNGS: CTAB HEART: RRR ABD: epigastric discomfort, some RLQ discomfort as well - also MSK tenderness to left NEURO/PSYCH: A & O 3 A/P: Fall, left-sided pain Right-sided and epigastric pain, change in bowel habits, blood in stool Abnormal LFTs (better - Hep panel neg), hepatic steatosis Acid reflux, h/o DUs Chronic pain on morphine -- I let the nurse know he was taking his own medications from home - defer to primary. Continue PPI and constipation treatment. Plan for outpt colonoscopy (?EGD too) LATOYA SOLANO September 09, 2018 11:54
[2018-09-09 15:00] VITALS: BP 111/41
[2018-09-09] MEDS: ENOXAPARIN 40 MG/0.4 ML SYRINGE. SQ SCH (15:56)
[2018-09-09] MEDS ORDERED: BISACODYL 5 MG TABLET.DR. PO ONE (16:00)
[2018-09-09] MEDS: DULoxetine HCL 30 MG CAPSULE.DR PO SCH (16:23)
[2018-09-09 19:00] VITALS: BP 89/39
[2018-09-09] MEDS ORDERED: ATOR20TA58 PO (19:58)
[2018-09-09] MEDS ORDERED: METO25TA4 PO (19:58)
[2018-09-09] MEDS ORDERED: MULT-735 PO (19:58)
[2018-09-09] MEDS ORDERED: LISI-130 PO (19:58)
[2018-09-09] MEDS: CYCLOBENZAPRINE 10 MG TABLET. PO SCH (21:19)
[2018-09-09] MEDS: GABAPENTIN 400 MG CAPSULE. PO SCH (21:19)
[2018-09-09 23:00] VITALS: BP 95/62
[2018-09-10] VITALS (7 sets, daily range): BP systolic 110–149; BP diastolic 38–89
[2018-09-10] MEDS: PANTOPRAZOLE 40 MG TABLET.DR. PO SCH (05:59)
[2018-09-10] MEDS: IV NORMAL SALINE 1000ML BAG 1,000 ML IV SCH ×2 (06:00→15:41)
[2018-09-10] MEDS: GABAPENTIN 400 MG CAPSULE. PO SCH ×2 (08:22→21:52)
[2018-09-10] MEDS: DULoxetine HCL 30 MG CAPSULE.DR PO SCH (08:22)
[2018-09-10] MEDS: POLYETHYLENE GLYCOL 3350 17 GM PACKET. PO SCH ×2 (08:41→21:53)
[2018-09-10] MEDS: FAMOTIDINE 20 MG TABLET. PO SCH ×2 (10:02→21:51)
[2018-09-10] MEDS: LISINOPRIL 20 MG TABLET PO SCH (10:03)
[2018-09-10] MEDS: METOPROLOL TART IMMED RELEASE 25 MG TABLET. PO SCH ×2 (10:03→21:52)
[2018-09-10] MEDS: MORPHINE SULFATE 4 MG/ML VIAL. IV PRN ×3 (10:06→22:02)
[2018-09-10] MEDS: MULTIVITAMIN with MINERAL TABLET. PO SCH (10:08)
--- NOTE | 2018-09-10 10:21 | PDOC ---
PROGRESS NOTES Chief Complaint Chief Complaint Patient is a 48-year-old gentleman with past medical history of hypertension diabetes and dyslipidemia currently on statin therapy was initiated [place] until this morning when apparently he slipped lost his footing when he is left leg gave out and apparently he did report he describes as a lateral split of his legs. He experienced severe pain after the incident and was unable to move much. Somewhat the patient ended up with a GI workup including a lipase level which was quite high but the patient denies epigastric pain he denies radiation to the back. Of note is that the patient had a recent viral infection but he denies any jaundice no travels outside the country no dietary transgressions either. He denies sick contacts. He denies chest pain palpitations no neurological deficits no peripheral edema \ Fall, left-sided pain Right-sided pain, change in bowel habits (straining w/ blood), nausea, dizziness, fatigue Abnormal LFTs, elevated lipase Acid reflux, h/o DUs Hepatic steatosis Chronic pain on morphine no hard evidence for pancreatitis. needs colonoscopy as h/o this elevates risk for colorectal neoplasia; // outpatient setting. Hepatic steatosis transaminitis, check viral markers.ok History of Present Illness History of Present Illness 48 y/o male admitted through ER. Fell down the steps last night and did the splits, has significant burning pain to left side into left groin. Found with no abnormalities on testicular US and abdominal CT save for steatitis hepatosis. Seen by GI, related chronic constipation and BRBPR in his history as well. Found with Lipase of 900, however, ate food brought in from outside while NPO, no vomiting. Feeling better, lipase improved to normal today. Still with ALT/AST elevations. Hepatitis panel negative. Awaiting US this morning. Has an appetite. Vitals Vitals Vital Signs Date Time Temp Pulse Resp B/P (MAP) Pulse Ox O2 Delivery O2 Flow Rate FiO2 09/10/18 10:06 Room Air 09/10/18 10:03 84 149/89 09/10/18 07:00 97.7 18 96 97.7 Physical Exam General: Alert, Oriented X3, Cooperative, mild distress Heart: Regular rate, Normal S1, Normal S2 Lungs: Clear Abdomen: Normal bowel sounds, Soft Extremities: No clubbing, No cyanosis, No edema Skin: No rashes, No breakdown Labs LABS Testicular ultrasound dated 09/08/2018. No comparison available. Clinical data indication: Pain after fall. Left groin pain. FINDINGS: Right testicle measures 4.7 x 3.0 x 2.8 cm. Left testicle measures 4.4 x 3.3 x 2.6 cm. No focal testicular mass. Normal color Doppler flow and waveforms to both testicles. Epididymides are unremarkable. No significant hydrocele or varicocele. No apparent inguinal hernia or focal fluid collection. IMPRESSION: Negative testicular ultrasound. Electronically signed by: Pillo Castillo MD (09/08/2018 12:11 PM) [facility] DICTATED and SIGNED BY: PILLO CASTILLO MD FINDINGS: The bibasilar lungs are clear. No evidence of free air identified in the abdomen. There is diffuse decreased attenuation noted in the liver likely hepatic steatosis. Mild hepatomegaly. The visualized spleen, right adrenal grossly appears unremarkable. There is a small nodule identified in the left adrenal gland measuring 1 cm measuring 56 Hounsfield units. The small bowel is nondilated. Feces and gas noted in the colon. The visualized pancreas grossly appears unremarkable. Urinary bladder is mildly distended. The bilateral kidneys enhance symmetrically. The urinary bladder is mildly distended. The caliber of the aorta grossly appears unremarkable. Mild degenerative changes thoracolumbar spine. Posterior cervical fusion hardware identified at L3, L4, L5 vertebral levels with intervertebral disc spacers at L3-L4, L4-L5 vertebral levels. Laminectomy changes identified at these levels. IMPRESSION: 1. No acute intra-abdominal findings. 2. Hepatic steatosis. 3. 1 cm nodule identified in the left adrenal gland, difficult to characterize given the size. Follow-up nonemergent adrenal CT protocol can be considered. Electronically signed by: Josh Solano MD (09/08/2018 12:47 PM) [facility] DICTATED and SIGNED BY: JOSH SOLANO MD DATE: 09/08/18 1247 Assessment and Plan Assessmemt and Plan Problems Medical Problems: (1) Fall down steps Status: Acute (2) Pancreatitis Status: Acute (3) Strain of groin Status: Acute Comment Review of Relevant I have reviewed the following items ivonne (where applicable) has been applied. Labs Laboratory Tests Test 09/08/18 11:30 09/08/18 13:15 09/09/18 08:24 White Blood Count 7.9 x10^3/uL (4.0-11.0) 7.3 x10^3/uL (4.0-11.0) Red Blood Count 5.27 x10^6/uL (4.30-5.70) 5.08 x10^6/uL (4.30-5.70) Hemoglobin 14.7 g/dL (13.0-17.5) 14.2 g/dL (13.0-17.5) Hematocrit 44.3 % (39.0-53.0) 43.3 % (39.0-53.0) Mean Corpuscular Volume 84 fL (79-100) 85 fL (79-100) Mean Corpuscular Hemoglobin 28 pg (25-35) 28 pg (25-35) Mean Corpuscular Hemoglobin Concent 33 g/dL (31-37) 33 g/dL (31-37) Red Cell Distribution Width 14.3 % (11.5-14.5) 14.4 % (11.5-14.5) Platelet Count 254 x10^3/uL (140-400) 230 x10^3/uL (140-400) Neutrophils (%) (Auto) 61 % (31-73) 54 % (31-73) Lymphocytes (%) (Auto) 30 % (24-48) 34 % (24-48) Monocytes (%) (Auto) 7 % (0-9) 10 % (0-9) Eosinophils (%) (Auto) 2 % (0-3) 2 % (0-3) Basophils (%) (Auto) 1 % (0-3) 0 % (0-3) Neutrophils # (Auto) 4.8 x10^3uL (1.8-7.7) 3.9 x10^3uL (1.8-7.7) Lymphocytes # (Auto) 2.3 x10^3/uL (1.0-4.8) 2.5 x10^3/uL (1.0-4.8) Monocytes # (Auto) 0.6 x10^3/uL (0.0-1.1) 0.7 x10^3/uL (0.0-1.1) Eosinophils # (Auto) 0.1 x10^3/uL (0.0-0.7) 0.2 x10^3/uL (0.0-0.7) Basophils # (Auto) 0.1 x10^3/uL (0.0-0.2) 0.0 x10^3/uL (0.0-0.2) Sodium Level 140 mmol/L (136-145) 140 mmol/L (136-145) Potassium Level 4.2 mmol/L (3.5-5.1) 4.2 mmol/L (3.5-5.1) Chloride Level 101 mmol/L (98-107) 103 mmol/L (98-107) Carbon Dioxide Level 30 mmol/L (21-32) 28 mmol/L (21-32) Anion Gap 9 (6-14) 9 (6-14) Blood Urea Nitrogen 12 mg/dL (8-26) 10 mg/dL (8-26) Creatinine 1.1 mg/dL (0.7-1.3) 1.0 mg/dL (0.7-1.3) Estimated GFR (Cockcroft-Gault) 87.2 97.3 BUN/Creatinine Ratio 11 (6-20) 10 (6-20) Glucose Level 143 mg/dL (70-99) 108 mg/dL (70-99) Calcium Level 9.7 mg/dL (8.5-10.1) 8.8 mg/dL (8.5-10.1) Iron Level 74 ug/dL (65-175) Total Iron Binding Capacity 388 ug/dL (250-450) Iron Saturation 19 % (15-34) Total Bilirubin 0.6 mg/dL (0.2-1.0) 0.6 mg/dL (0.2-1.0) Aspartate Amino Transf (AST/SGOT) 82 U/L (15-37) 81 U/L (15-37) Alanine Aminotransferase (ALT/SGPT) 135 U/L (16-63) 128 U/L (16-63) Alkaline Phosphatase 124 U/L (46-116) 111 U/L (46-116) Total Protein 8.6 g/dL (6.4-8.2) 7.8 g/dL (6.4-8.2) Albumin 4.0 g/dL (3.4-5.0) 3.5 g/dL (3.4-5.0) Albumin/Globulin Ratio 0.9 (1.0-1.7) 0.8 (1.0-1.7) Lipase 901 U/L (73-393) 117 U/L (73-393) Ethyl Alcohol Level < 10 mg/dL (0-10) Hepatitis A IgM Antibody Nonreactive (Nonreactive) Hepatitis B Surface Antigen Nonreactive (Nonreactive) Hepatitis B Core IgM Antibody Nonreactive (Nonreactive) Hepatitis C IgG Antibody Nonreactive (Nonreactive) Urine Collection Type Unknown Urine Color Yellow Urine Clarity Clear Urine pH 6.5 Urine Specific [place] >=1.030 Urine Protein Negative mg/dL (NEG-TRACE) Urine Glucose (UA) Negative mg/dL (NEG) Urine Ketones (Stick) Negative mg/dL (NEG) Urine Blood Negative (NEG) Urine Nitrite Negative (NEG) Urine Bilirubin Negative (NEG) Urine Urobilinogen Dipstick 1.0 mg/dL (0.2 mg/dL) Urine Leukocyte Esterase Negative (NEG) Urine RBC Rare /HPF (0-2) Urine WBC 0 /HPF (0-4) Urine Squamous Epithelial Cells Occ /LPF Urine Bacteria 0 /HPF (0-FEW) Urine Opiates Screen Pos (NEG) Urine Methadone Screen Neg (NEG) Urine Barbiturates Neg (NEG) Urine Phencyclidine Screen Neg (NEG) Urine Amphetamine/Methamphetamine Neg (NEG) Urine Benzodiazepines Screen Neg (NEG) Urine Cocaine Screen Neg (NEG) Urine Cannabinoids Screen Neg (NEG) Urine Ethyl Alcohol Neg (NEG) Medications Current Medications Fentanyl Citrate (Fentanyl 2ml Vial) 50 mcg 1X ONCE IV Last administered on 09/08/18at 11:39; Start 09/08/18 at 11:15; Stop 09/08/18 at 11:27; Status DC Ondansetron HCl (Zofran) 4 mg 1X ONCE IV Last administered on 09/08/18at 11:39; Start 09/08/18 at 11:15; Stop 09/08/18 at 11:27; Status DC Iohexol (Omnipaque 300 Mg/ml) 75 ml 1X ONCE IV Last administered on 09/08/18at 12:33; Start 09/08/18 at 12:15; Stop 09/08/18 at 12:16; Status DC Info (CONTRAST GIVEN -- Rx MONITORING) 1 each PRN DAILY PRN MC SEE COMMENTS; Start 09/08/18 at 12:15; Stop 09/10/18 at 12:14 Fentanyl Citrate (Fentanyl 2ml Vial) 50 mcg 1X ONCE IV Last administered on 09/08/18at 13:02; Start 09/08/18 at 12:45; Stop 09/08/18 at 12:46; Status DC Morphine Sulfate (Morphine Sulfate) 5 mg 1X ONCE IV Last administered on 09/08/18at 14:49; Start 09/08/18 at 14:15; Stop 09/08/18 at 14:18; Status DC Diazepam (Valium) 5 mg 1X ONCE PO Last administered on 09/08/18at 14:49; Start 09/08/18 at 14:15; Stop 09/08/18 at 14:18; Status DC Sodium Chloride 1,000 ml @ 100 mls/hr Q10H IV Last administered on 09/10/18at 06:00; Start 09/08/18 at 14:52 Ondansetron HCl (Zofran) 4 mg PRN Q4HRS PRN IV NAUSEA/VOMITING Last administered on 09/09/18at 21:26; Start 09/08/18 at 15:00 Zolpidem Tartrate (Ambien) 5 mg PRN QHS PRN PO INSOMNIA; Start 09/08/18 at 15:00 Acetaminophen (Tylenol) 650 mg PRN Q4HRS PRN PO TEMP OVER 100.4F OR MILD PAIN; Start 09/08/18 at 15:00 Al Hydroxide/Mg Hydroxide (Mylanta Plus Xs) 30 ml PRN DAILY PRN PO HEARTBURN / GAS; Start 09/08/18 at 15:00 Clonidine HCl (Catapres) 0.1 mg PRN Q6HRS PRN PO SBP>160 OR DBP>90; Start 09/08/18 at 15:00 Sodium Monofluorophosphate (Fleet Adult) 133 ml PRN DAILY PRN PA CONSTIPATION; Start 09/08/18 at 15:00 Docusate Sodium (Colace) 100 mg PRN BID PRN PO CONSTIPATION; Start 09/08/18 at 15:00 Albuterol Sulfate (Ventolin Neb Soln) 2.5 mg PRN Q4HRS PRN NEB SHORTNESS OF BREATH; Start 09/08/18 at 15:00 Guaifenesin (Robitussin) 200 mg PRN Q4HRS PRN PO COUGH; Start 09/08/18 at 15:00 Lorazepam (Ativan) 0.5 mg PRN Q4HRS PRN PO ANXIETY / AGITATION; Start 09/08/18 at 15:00 Enoxaparin Sodium (Lovenox 40mg Syringe) 40 mg Q24H SQ Last administered on 09/09/18at 15:56; Start 09/08/18 at 16:00 Ondansetron HCl (Zofran) 4 mg PRN Q8HRS PRN IV NAUSEA/VOMITING; Start 09/08/18 at 16:15; Stop 09/09/18 at 16:14; Status DC Morphine Sulfate (Morphine Sulfate) 4 mg PRN Q2HR PRN IV PAIN Last administered on 09/09/18at 15:54; Start 09/08/18 at 16:15; Stop 09/09/18 at 16:14; Status DC Acetaminophen (Tylenol) 650 mg PRN Q4HRS PRN PO FEVER; Start 09/08/18 at 16:15; Stop 09/09/18 at 16:14; Status DC Sodium Chloride 1,000 ml @ 125 mls/hr 1X ONCE IV ; Start 09/08/18 at 16:15; Stop 09/09/18 at 00:14; Status DC Pantoprazole Sodium (Protonix) 40 mg DAILYAC PO Last administered on 09/10/18at 05:59; Start 09/08/18 at 18:30 Polyethylene Glycol (miraLAX PACKET) 17 gm BID PO Last administered on 09/10/18at 08:41; Start 09/08/18 at 21:00 Tizanidine HCl (Zanaflex) 4 mg PRN Q8HRS PRN PO MUSCLE SPASMS; Start 09/08/18 at 22:45 Bisacodyl (Dulcolax Tab) 10 mg 1X ONCE PO Last administered on 09/09/18at 19:54; Start 09/09/18 at 16:00; Stop 09/09/18 at 16:01; Status DC Cyclobenzaprine HCl (Flexeril) 10 mg QHS PO Last administered on 09/09/18at 2 1:19; Start 09/09/18 at 21:00 Duloxetine HCl (Cymbalta) 60 mg DAILY PO Last administered on 09/10/18at 08:22; Start 09/09/18 at 16:30 Gabapentin (Neurontin) 800 mg BID PO Last administered on 09/10/18at 08:22; Start 09/09/18 at 21:00 Atorvastatin Calcium (Lipitor) 20 mg HS PO ; Start 09/10/18 at 21:00 Famotidine (Pepcid) 20 mg BID PO Last administered on 09/10/18at 10:02; Start 09/10/18 at 10:00 Lisinopril (Prinivil) 40 mg DAILY PO Last administered on 09/10/18at 10:03; Start 09/10/18 at 10:00 Metoprolol Tartrate (Lopressor) 25 mg BID PO Last administered on 09/10/18at 10:03; Start 09/10/18 at 10:00 Multivitamins (Thera M Plus) 1 tab DAILY PO Last administered on 09/10/18at 10:08; Start 09/10/18 at 10:00 Morphine Sulfate (Morphine Sulfate) 4 mg PRN Q2HR PRN IV PAIN Last administered on 09/10/18at 10:06; Start 09/10/18 at 09:45 Active Scripts Active Pepcid (Famotidine) 20 Mg Tablet 20 Mg PO BID 14 Days Zofran (Ondansetron Hcl) 4 Mg Tablet 1 Tab PO Q6HRS Zofran (Ondansetron Hcl) 4 Mg Tablet 4 Mg PO BID PRN Ibuprofen 800 Mg Tablet 800 Mg PO PRN Q6HRS PRN Reported One-Daily Multi-Vitamin (Multivitamin) 1 Each Tablet 1 Each PO BID Atorvastatin Calcium 20 Mg Tablet 20 Mg PO HS Lisinopril 40 Mg Tablet 1 Tab PO DAILY Metoprolol Tartrate 25 Mg Tablet 1 Tab PO BID Cyclobenzaprine Hcl 10 Mg Tablet 1 Tab PO QHS Gabapentin 800 Mg Tablet 800 Mg PO BID Cymbalta (Duloxetine Hcl) 60 Mg Capsule. 1 Cap PO DAILY Vitals/I & O Vital Sign - Last 24 Hours 09/09/18 09/09/18 09/09/18 09/09/18 11:00 11:04 11:57 15:00 Temp 98.1 97.9 98.1 97.9 Pulse 94 64 Resp 16 16 B/P (MAP) 95/41 (59) 111/41 (64) Pulse Ox 97 90 90 99 O2 Delivery Room Air Room Air Room Air Room Air 09/09/18 09/09/18 09/09/18 09/09/18 15:54 19:00 20:00 23:00 Temp 97.6 98.2 97.6 98.2 Pulse 86 88 Resp 18 18 B/P (MAP) 89/39 (56) 95/62 (73) Pulse Ox 90 99 100 O2 Delivery Room Air Room Air Room Air Room Air 09/10/18 09/10/18 09/10/18 09/10/18 03:00 07:00 10:03 10:03 Temp 98.1 97.7 98.1 97.7 Pulse 87 84 84 84 Resp 18 18 B/P (MAP) 110/69 (83) 127/38 (67) 149/89 149/89 Pulse Ox 99 96 O2 Delivery Room Air Room Air 09/10/18 10:06 O2 Delivery Room Air Intake and Output 09/09/18 09/09/18 09/10/18 15:00 23:00 07:00 Output Total 500 ml 1100 ml 950 ml Balance -500 ml -1100 ml -950 ml LAURA PAN MD September 10, 2018 10:21
--- NOTE | 2018-09-10 10:51 | NUR ---
SW following for discharge planning. Discussed with RN, pt from home, should discharge home today with self care. RN advised no SW needs.
--- NOTE | 2018-09-10 10:58 | PDOC ---
Subjective: Subjective: Tolerating PO, had a stool earlier this morning. Didn't see any blood but didn't really check (and says all he saw was toilet paper). Asks about liver enzymes. Objective: Vital Signs: Vital Signs Date Time Temp Pulse Resp B/P (MAP) Pulse Ox O2 Delivery O2 Flow Rate FiO2 09/10/18 10:06 Room Air 09/10/18 10:03 84 149/89 09/10/18 07:00 97.7 18 96 97.7 PE: GEN: NAD LUNGS: CTAB HEART: RRR ABD: NABS, S/ND/NT NEURO/PSYCH: A & O 3 A/P: Fall, left-sided pain, also chronic pain Abd pain Abnormal LFTs - better yesterday, hepatic steatosis on imaging Acid reflux, h/o DUs -- Continue same per GI, follow-up as outpt. LATOYA SOLANO September 10, 2018 10:58
[2018-09-10 12:31] LABS: ALBUMIN 3.6 g/dL (3.4-5.0); DIRECT BILIRUBIN 0.2 mg/dL (0.0-0.2); TOTAL BILIRUBIN 0.8 mg/dL (0.2-1.0); TOTAL PROTEIN 8.1 g/dL (6.4-8.2)
[2018-09-10] MEDS: ENOXAPARIN 40 MG/0.4 ML SYRINGE. SQ SCH (15:45)
[2018-09-10] MEDS ORDERED: ATORVASTATIN CALCIUM 20 MG TABLET PO SCH (21:00)
[2018-09-10] MEDS: CYCLOBENZAPRINE 10 MG TABLET. PO SCH (21:52)
[2018-09-11] MEDS: IV NORMAL SALINE 1000ML BAG 1,000 ML IV SCH ×2 (01:48→11:53)
[2018-09-11 03:11] VITALS: BP 119/59
[2018-09-11 05:45] LABS: BASO # 0.1 x10^3/uL (0.0-0.2); BASO % 1 % (0-3); EOS # 0.2 x10^3/uL (0.0-0.7); EOS % 2 % (0-3); HEMATOCRIT 41.2 % (39.0-53.0); HEMOGLOBIN 13.6 g/dL (13.0-17.5); LYMPH # 3.4 x10^3/uL (1.0-4.8); LYMPH % 42 % (24-48); MEAN CORPUSCULAR HEMOGLOBIN 28 pg (25-35); MEAN CORPUSCULAR HGB CONC 33 g/dL (31-37); MEAN CORPUSCULAR VOLUME 84 fL (79-100); MONO # 0.7 x10^3/uL (0.0-1.1); MONO % 9 % (0-9); NEUT # 3.7 x10^3uL (1.8-7.7); NEUT % 46 % (31-73); PLATELET COUNT 235 x10^3/uL (140-400); RED BLOOD COUNT 4.91 x10^6/uL (4.30-5.70); RED CELL DISTRIBUTION WIDTH 14.1 % (11.5-14.5)
[2018-09-11 06:20] LABS: ALBUMIN 3.4 g/dL (3.4-5.0); ALBUMIN/GLOBULIN RATIO 0.8 (1.0-1.7); CREATININE 1.1 mg/dL (0.7-1.3); GFR 87.2; POTASSIUM 3.9 mmol/L (3.5-5.1); TOTAL BILIRUBIN 0.3 mg/dL (0.2-1.0); TOTAL PROTEIN 7.5 g/dL (6.4-8.2)
[2018-09-11 07:00] VITALS: BP 146/77
--- NOTE | 2018-09-11 08:08 | PDOC ---
PROGRESS NOTES Chief Complaint Chief Complaint Patient is a 48-year-old gentleman with past medical history of hypertension diabetes and dyslipidemia currently on statin therapy was initiated [place] until this morning when apparently he slipped lost his footing when he is left leg gave out and apparently he did report he describes as a lateral split of his legs. He experienced severe pain after the incident and was unable to move much. Somewhat the patient ended up with a GI workup including a lipase level which was quite high but the patient denies epigastric pain he denies radiation to the back. Of note is that the patient had a recent viral infection but he denies any jaundice no travels outside the country no dietary transgressions either. He denies sick contacts. He denies chest pain palpitations no neurological deficits no peripheral edema \ Fall, left-sided pain Right-sided pain, change in bowel habits (straining w/ blood), nausea, dizziness, fatigue Abnormal LFTs, elevated lipase Acid reflux, h/o DUs Hepatic steatosis Chronic pain on morphine no hard evidence for pancreatitis. needs colonoscopy as h/o this elevates risk for colorectal neoplasia; // outpatient setting. Hepatic steatosis transaminitis, check viral markers.ok History of Present Illness History of Present Illness 48 y/o male admitted through ER. Fell down the steps last night and did the splits, has significant burning pain to left side into left groin. Found with no abnormalities on testicular US and abdominal CT save for steatitis hepatosis. Seen by GI, related chronic constipation and BRBPR in his history as well. Found with Lipase of 900, however, ate food brought in from outside while NPO, no vomiting. Feeling better, lipase improved to normal today. Still with ALT/AST elevations, improving. Hepatitis panel negative. US shows steatohepatosis, no GB pathology, not visualized pancreas. Has an appetite. Vitals Vitals Vital Signs Date Time Temp Pulse Resp B/P (MAP) Pulse Ox O2 Delivery O2 Flow Rate FiO2 09/11/18 03:11 98.3 87 18 119/59 (79) 97 Room Air 98.3 Physical Exam General: Alert, Oriented X3, Cooperative, mild distress Heart: Regular rate, Normal S1, Normal S2 Lungs: Clear Abdomen: Normal bowel sounds, Soft Extremities: No clubbing, No cyanosis, No edema Skin: No rashes, No breakdown Labs LABS Laboratory Tests Test 5/17/19 11:25 09/11/18 04:35 Total Bilirubin 0.8 mg/dL (0.2-1.0) 0.3 mg/dL (0.2-1.0) Direct Bilirubin 0.2 mg/dL (0.0-0.2) Aspartate Amino Transf (AST/SGOT) 67 U/L (15-37) 54 U/L (15-37) Alanine Aminotransferase (ALT/SGPT) 105 U/L (16-63) 95 U/L (16-63) Alkaline Phosphatase 116 U/L (46-116) 104 U/L (46-116) Total Protein 8.1 g/dL (6.4-8.2) 7.5 g/dL (6.4-8.2) Albumin 3.6 g/dL (3.4-5.0) 3.4 g/dL (3.4-5.0) White Blood Count 8.0 x10^3/uL (4.0-11.0) Red Blood Count 4.91 x10^6/uL (4.30-5.70) Hemoglobin 13.6 g/dL (13.0-17.5) Hematocrit 41.2 % (39.0-53.0) Mean Corpuscular Volume 84 fL (79-100) Mean Corpuscular Hemoglobin 28 pg (25-35) Mean Corpuscular Hemoglobin Concent 33 g/dL (31-37) Red Cell Distribution Width 14.1 % (11.5-14.5) Platelet Count 235 x10^3/uL (140-400) Neutrophils (%) (Auto) 46 % (31-73) Lymphocytes (%) (Auto) 42 % (24-48) Monocytes (%) (Auto) 9 % (0-9) Eosinophils (%) (Auto) 2 % (0-3) Basophils (%) (Auto) 1 % (0-3) Neutrophils # (Auto) 3.7 x10^3uL (1.8-7.7) Lymphocytes # (Auto) 3.4 x10^3/uL (1.0-4.8) Monocytes # (Auto) 0.7 x10^3/uL (0.0-1.1) Eosinophils # (Auto) 0.2 x10^3/uL (0.0-0.7) Basophils # (Auto) 0.1 x10^3/uL (0.0-0.2) Sodium Level 142 mmol/L (136-145) Potassium Level 3.9 mmol/L (3.5-5.1) Chloride Level 106 mmol/L (98-107) Carbon Dioxide Level 26 mmol/L (21-32) Anion Gap 10 (6-14) Blood Urea Nitrogen 12 mg/dL (8-26) Creatinine 1.1 mg/dL (0.7-1.3) Estimated GFR (Cockcroft-Gault) 87.2 BUN/Creatinine Ratio 11 (6-20) Glucose Level 98 mg/dL (70-99) Calcium Level 9.0 mg/dL (8.5-10.1) Albumin/Globulin Ratio 0.8 (1.0-1.7) Assessment and Plan Assessmemt and Plan Problems Medical Problems: (1) Fall down steps Status: Acute (2) Pancreatitis Status: Acute (3) Strain of groin Status: Acute Comment Review of Relevant I have reviewed the following items ivonne (where applicable) has been applied. Labs Laboratory Tests Test 09/09/18 08:24 09/10/18 11:25 09/11/18 04:35 White Blood Count 7.3 x10^3/uL (4.0-11.0) 8.0 x10^3/uL (4.0-11.0) Red Blood Count 5.08 x10^6/uL (4.30-5.70) 4.91 x10^6/uL (4.30-5.70) Hemoglobin 14.2 g/dL (13.0-17.5) 13.6 g/dL (13.0-17.5) Hematocrit 43.3 % (39.0-53.0) 41.2 % (39.0-53.0) Mean Corpuscular Volume 85 fL (79-100) 84 fL (79-100) Mean Corpuscular Hemoglobin 28 pg (25-35) 28 pg (25-35) Mean Corpuscular Hemoglobin Concent 33 g/dL (31-37) 33 g/dL (31-37) Red Cell Distribution Width 14.4 % (11.5-14.5) 14.1 % (11.5-14.5) Platelet Count 230 x10^3/uL (140-400) 235 x10^3/uL (140-400) Neutrophils (%) (Auto) 54 % (31-73) 46 % (31-73) Lymphocytes (%) (Auto) 34 % (24-48) 42 % (24-48) Monocytes (%) (Auto) 10 % (0-9) 9 % (0-9) Eosinophils (%) (Auto) 2 % (0-3) 2 % (0-3) Basophils (%) (Auto) 0 % (0-3) 1 % (0-3) Neutrophils # (Auto) 3.9 x10^3uL (1.8-7.7) 3.7 x10^3uL (1.8-7.7) Lymphocytes # (Auto) 2.5 x10^3/uL (1.0-4.8) 3.4 x10^3/uL (1.0-4.8) Monocytes # (Auto) 0.7 x10^3/uL (0.0-1.1) 0.7 x10^3/uL (0.0-1.1) Eosinophils # (Auto) 0.2 x10^3/uL (0.0-0.7) 0.2 x10^3/uL (0.0-0.7) Basophils # (Auto) 0.0 x10^3/uL (0.0-0.2) 0.1 x10^3/uL (0.0-0.2) Sodium Level 140 mmol/L (136-145) 142 mmol/L (136-145) Potassium Level 4.2 mmol/L (3.5-5.1) 3.9 mmol/L (3.5-5.1) Chloride Level 103 mmol/L (98-107) 106 mmol/L (98-107) Carbon Dioxide Level 28 mmol/L (21-32) 26 mmol/L (21-32) Anion Gap 9 (6-14) 10 (6-14) Blood Urea Nitrogen 10 mg/dL (8-26) 12 mg/dL (8-26) Creatinine 1.0 mg/dL (0.7-1.3) 1.1 mg/dL (0.7-1.3) Estimated GFR (Cockcroft-Gault) 97.3 87.2 BUN/Creatinine Ratio 10 (6-20) 11 (6-20) Glucose Level 108 mg/dL (70-99) 98 mg/dL (70-99) Calcium Level 8.8 mg/dL (8.5-10.1) 9.0 mg/dL (8.5-10.1) Total Bilirubin 0.6 mg/dL (0.2-1.0) 0.8 mg/dL (0.2-1.0) 0.3 mg/dL (0.2-1.0) Aspartate Amino Transf (AST/SGOT) 81 U/L (15-37) 67 U/L (15-37) 54 U/L (15-37) Alanine Aminotransferase (ALT/SGPT) 128 U/L (16-63) 105 U/L (16-63) 95 U/L (16-63) Alkaline Phosphatase 111 U/L (46-116) 116 U/L (46-116) 104 U/L (46-116) Total Protein 7.8 g/dL (6.4-8.2) 8.1 g/dL (6.4-8.2) 7.5 g/dL (6.4-8.2) Albumin 3.5 g/dL (3.4-5.0) 3.6 g/dL (3.4-5.0) 3.4 g/dL (3.4-5.0) Albumin/Globulin Ratio 0.8 (1.0-1.7) 0.8 (1.0-1.7) Lipase 117 U/L (73-393) Direct Bilirubin 0.2 mg/dL (0.0-0.2) Laboratory Tests Test 09/10/18 11:25 09/11/18 04:35 Total Bilirubin 0.8 mg/dL (0.2-1.0) 0.3 mg/dL (0.2-1.0) Direct Bilirubin 0.2 mg/dL (0.0-0.2) Aspartate Amino Transf (AST/SGOT) 67 U/L (15-37) 54 U/L (15-37) Alanine Aminotransferase (ALT/SGPT) 105 U/L (16-63) 95 U/L (16-63) Alkaline Phosphatase 116 U/L (46-116) 104 U/L (46-116) Total Protein 8.1 g/dL (6.4-8.2) 7.5 g/dL (6.4-8.2) Albumin 3.6 g/dL (3.4-5.0) 3.4 g/dL (3.4-5.0) White Blood Count 8.0 x10^3/uL (4.0-11.0) Red Blood Count 4.91 x10^6/uL (4.30-5.70) Hemoglobin 13.6 g/dL (13.0-17.5) Hematocrit 41.2 % (39.0-53.0) Mean Corpuscular Volume 84 fL (79-100) Mean Corpuscular Hemoglobin 28 pg (25-35) Mean Corpuscular Hemoglobin Concent 33 g/dL (31-37) Red Cell Distribution Width 14.1 % (11.5-14.5) Platelet Count 235 x10^3/uL (140-400) Neutrophils (%) (Auto) 46 % (31-73) Lymphocytes (%) (Auto) 42 % (24-48) Monocytes (%) (Auto) 9 % (0-9) Eosinophils (%) (Auto) 2 % (0-3) Basophils (%) (Auto) 1 % (0-3) Neutrophils # (Auto) 3.7 x10^3uL (1.8-7.7) Lymphocytes # (Auto) 3.4 x10^3/uL (1.0-4.8) Monocytes # (Auto) 0.7 x10^3/uL (0.0-1.1) Eosinophils # (Auto) 0.2 x10^3/uL (0.0-0.7) Basophils # (Auto) 0.1 x10^3/uL (0.0-0.2) Sodium Level 142 mmol/L (136-145) Potassium Level 3.9 mmol/L (3.5-5.1) Chloride Level 106 mmol/L (98-107) Carbon Dioxide Level 26 mmol/L (21-32) Anion Gap 10 (6-14) Blood Urea Nitrogen 12 mg/dL (8-26) Creatinine 1.1 mg/dL (0.7-1.3) Estimated GFR (Cockcroft-Gault) 87.2 BUN/Creatinine Ratio 11 (6-20) Glucose Level 98 mg/dL (70-99) Calcium Level 9.0 mg/dL (8.5-10.1) Albumin/Globulin Ratio 0.8 (1.0-1.7) Medications Current Medications Fentanyl Citrate (Fentanyl 2ml Vial) 50 mcg 1X ONCE IV Last administered on 09/08/18 11:39; Start 09/08/18 at 11:15; Stop 09/08/18 at 11:27; Status DC Ondansetron HCl (Zofran) 4 mg 1X ONCE IV Last administered on 09/08/18at 11:39; Start 09/08/18 at 11:15; Stop 09/08/18 at 11:27; Status DC Iohexol (Omnipaque 300 Mg/ml) 75 ml 1X ONCE IV Last administered on 09/08/18at 12:33; Start 09/08/18 at 12:15; Stop 09/08/18 at 12:16; Status DC Info (CONTRAST GIVEN -- Rx MONITORING) 1 each PRN DAILY PRN MC SEE COMMENTS; Start 09/08/18 at 12:15; Stop 09/10/18 at 12:14; Status DC Fentanyl Citrate (Fentanyl 2ml Vial) 50 mcg 1X ONCE IV Last administered on 09/08/18at 13:02; Start 09/08/18 at 12:45; Stop 09/08/18 at 12:46; Status DC Morphine Sulfate (Morphine Sulfate) 5 mg 1X ONCE IV Last administered on 09/08/18at 14:49; Start 09/08/18 at 14:15; Stop 09/08/18 at 14:18; Status DC Diazepam (Valium) 5 mg 1X ONCE PO Last administered on 09/08/18at 14:49; Start 09/08/18 at 14:15; Stop 09/08/18 at 14:18; Status DC Sodium Chloride 1,000 ml @ 100 mls/hr Q10H IV Last administered on 09/11/18at 01:48; Start 09/08/18 at 14:52 Ondansetron HCl (Zofran) 4 mg PRN Q4HRS PRN IV NAUSEA/VOMITING Last administered on 09/09/18at 21:26; Start 09/08/18 at 15:00 Zolpidem Tartrate (Ambien) 5 mg PRN QHS PRN PO INSOMNIA; Start 09/08/18 at 15:00 Acetaminophen (Tylenol) 650 mg PRN Q4HRS PRN PO TEMP OVER 100.4F OR MILD PAIN; Start 09/08/18 at 15:00 Al Hydroxide/Mg Hydroxide (Mylanta Plus Xs) 30 ml PRN DAILY PRN PO HEARTBURN / GAS; Start 09/08/18 at 15:00 Clonidine HCl (Catapres) 0.1 mg PRN Q6HRS PRN PO SBP>160 OR DBP>90; Start 09/08 at 15:00 Sodium Monofluorophosphate (Fleet Adult) 133 ml PRN DAILY PRN [place] CONSTIPATION; Start 09/08/18 at 15:00 Docusate Sodium (Colace) 100 mg PRN BID PRN PO CONSTIPATION; Start 09/08/18 at 15:00 Albuterol Sulfate (Ventolin Neb Soln) 2.5 mg PRN Q4HRS PRN NEB SHORTNESS OF BREATH; Start 09/08/18 at 15:00 Guaifenesin (Robitussin) 200 mg PRN Q4HRS PRN PO COUGH; Start 09/08/18 at 15:00 Lorazepam (Ativan) 0.5 mg PRN Q4HRS PRN PO ANXIETY / AGITATION; Start 09/08/18 at 15:00 Enoxaparin Sodium (Lovenox 40mg Syringe) 40 mg Q24H SQ Last administered on 09/10/18at 15:45; Start 09/08/18 at 16:00 Ondansetron HCl (Zofran) 4 mg PRN Q8HRS PRN IV NAUSEA/VOMITING; Start 09/08/18 at 16:15; Stop 09/09/18 at 16:14; Status DC Morphine Sulfate (Morphine Sulfate) 4 mg PRN Q2HR PRN IV PAIN Last administered on 09/09/18at 15:54; Start 09/08/18 at 16:15; Stop 09/09/18 at 16:14; Status DC Acetaminophen (Tylenol) 650 mg PRN Q4HRS PRN PO FEVER; Start 09/08/18 at 16:15; Stop 09/09/18 at 16:14; Status DC Sodium Chloride 1,000 ml @ 125 mls/hr 1X ONCE IV ; Start 09/08/18 at 16:15; Stop 09/09/18 at 00:14; Status DC Pantoprazole Sodium (Protonix) 40 mg DAILYAC PO Last administered on 09/10/18at 05:59; Start 09/08/18 at 18:30 Polyethylene Glycol (miraLAX PACKET) 17 gm BID PO Last administered on 09/10/18at 21:53; Start 09/08/18 at 21:00 Tizanidine HCl (Zanaflex) 4 mg PRN Q8HRS PRN PO MUSCLE SPASMS; Start 09/08/18 at 22:45 Bisacodyl (Dulcolax Tab) 10 mg 1X ONCE PO Last administered on 09/09/18at 19:54; Start 09/09/18 at 16:00; Stop 09/09/18 at 16:01; Status DC Cyclobenzaprine HCl (Flexeril) 10 mg QHS PO Last administered on 09/10/18at 21:52; Start 09/09/18 at 21:00 Duloxetine HCl (Cymbalta) 60 mg DAILY PO Last administered on 09/10/18at 08:22; Start 09/09/18 at 16:30 Gabapentin (Neurontin) 800 mg BID PO Last administered on 09/10/18 21:52; Start 09/09/18 at 21:00 Atorvastatin Calcium (Lipitor) 20 mg HS PO Last administered on 09/10/18at 21:52; Start 09/10/18 at 21:00 Famotidine (Pepcid) 20 mg BID PO Last administered on 09/10/18at 21:51; Start 09/10/18 at 10:00 Lisinopril (Prinivil) 40 mg DAILY PO Last administered on 09/10/18at 10:03; Start 09/10/18 at 10:00 Metoprolol Tartrate (Lopressor) 25 mg BID PO Last administered on 09/10/18 21:52; Start 09/10/18 at 10:00 Multivitamins (Thera M Plus) 1 tab DAILY PO Last administered on 09/10/18at 10:08; Start 09/10/18 at 10:00 Morphine Sulfate (Morphine Sulfate) 4 mg PRN Q2HR PRN IV PAIN Last administered on 09/10/18at 22:02; Start 09/10/18 at 09:45 Active Scripts Active Pepcid (Famotidine) 20 Mg Tablet 20 Mg PO BID 14 Days Zofran (Ondansetron Hcl) 4 Mg Tablet 1 Tab PO Q6HRS Zofran (Ondansetron Hcl) 4 Mg Tablet 4 Mg PO BID PRN Ibuprofen 800 Mg Tablet 800 Mg PO PRN Q6HRS PRN Reported One-Daily Multi-Vitamin (Multivitamin) 1 Each Tablet 1 Each PO BID Atorvastatin Calcium 20 Mg Tablet 20 Mg PO HS Lisinopril 40 Mg Tablet 1 Tab PO DAILY Metoprolol Tartrate 25 Mg Tablet 1 Tab PO BID Cyclobenzaprine Hcl 10 Mg Tablet 1 Tab PO QHS Gabapentin 800 Mg Tablet 800 Mg PO BID Cymbalta (Duloxetine Hcl) 60 Mg Capsule. 1 Cap PO DAILY Vitals/I & O Vital Sign - Last 24 Hours 09/10/18 09/10/18 09/10/18 09/10/18 08:22 10:03 10:03 10:06 Pulse 84 84 84 B/P (MAP) 149/89 (109) 149/89 149/89 O2 Delivery Room Air 09/10/18 09/10/18 09/10/18 09/10/18 11:00 15:00 15:42 19:35 Temp 98.0 97.9 98.3 98.0 97.9 98.3 Pulse 83 87 85 Resp 18 18 18 B/P (MAP) 125/65 (85) 111/52 (71) 138/57 (84) Pulse Ox 97 95 95 O2 Delivery Room Air Room Air Room Air Room Air 09/10/18 09/10/18 09/10/18 09/10/18 21:52 22:02 22:32 23:25 Temp 98.4 98.4 Pulse 85 78 Resp 20 20 18 B/P (MAP) 138/57 118/53 (74) Pulse Ox 96 O2 Delivery Room Air Room Air Room Air 09/11/18 03:11 Temp 98.3 98.3 Pulse 87 Resp 18 B/P (MAP) 119/59 (79) Pulse Ox 97 O2 Delivery Room Air Intake and Output 09/10/18 09/10/18 09/11/18 15:00 23:00 07:00 Intake Total 240 ml 500 ml 1600 ml Output Total 2025 ml 350 ml 900 ml Balance -1785 ml 150 ml 700 ml Images Abd US 1. No gallbladder abnormality is detected. 2. Mild hepatomegaly with hepatic steatosis. 3. Obscuration of the pancreas and central retroperitoneum by overlying bowel. HEATH GILMAN MD September 11, 2018 08:08
[2018-09-11] MEDS: MORPHINE SULFATE 4 MG/ML VIAL. IV PRN ×3 (08:32→17:27)
[2018-09-11] MEDS: GABAPENTIN 400 MG CAPSULE. PO SCH (08:33)
[2018-09-11] MEDS: FAMOTIDINE 20 MG TABLET. PO SCH (08:33)
[2018-09-11] MEDS: MULTIVITAMIN with MINERAL TABLET. PO SCH (08:34)
[2018-09-11] MEDS: METOPROLOL TART IMMED RELEASE 25 MG TABLET. PO SCH (08:34)
[2018-09-11] MEDS: LISINOPRIL 20 MG TABLET PO SCH (08:35)
[2018-09-11] MEDS: DULoxetine HCL 30 MG CAPSULE.DR PO SCH (08:36)
[2018-09-11] MEDS: PANTOPRAZOLE 40 MG TABLET.DR. PO SCH (08:37)
[2018-09-11] MEDS: POLYETHYLENE GLYCOL 3350 17 GM PACKET. PO SCH (08:38)
[2018-09-11 11:00] VITALS: BP 115/79
[2018-09-11] MEDS ORDERED: TRAM50TA PO (13:22)
[2018-09-11] MEDS ORDERED: Pantoprazole PO (13:22)
--- NOTE | 2018-09-11 13:29 | PDOC3 ---
Discharge Summary Visit Information Date of Admission: September 08, 2018 Date of Discharge: September 11, 2018 Admitting Diagnosis: Fall, pancreatitis, groin pulled Final Diagnosis Problems Medical Problems: (1) Fall down steps Status: Acute (2) Pancreatitis Status: Acute (3) Strain of groin Status: Acute Brief Hospital Course Allergies Allergies Coded Allergies Type Severity Reaction Last Updated Verified Penicillins Allergy Intermediate 09/09/18 Yes chocolate flavor Allergy Intermediate 09/09/18 Yes venom-honey bee Allergy Intermediate 09/09/18 Yes Vital Signs Vital Signs Date Time Temp Pulse Resp B/P (MAP) Pulse Ox O2 Delivery O2 Flow Rate FiO2 09/11/18 11:59 92 Room Air 09/11/18 11:00 98.1 83 18 115/79 (91) 98.1 Lab Results Laboratory Tests Test 09/10/18 11:25 09/11/18 04:35 09/11/18 05:00 Total Bilirubin 0.8 mg/dL (0.2-1.0) 0.3 mg/dL (0.2-1.0) Direct Bilirubin 0.2 mg/dL (0.0-0.2) Aspartate Amino Transf (AST/SGOT) 67 U/L (15-37) 54 U/L (15-37) Alanine Aminotransferase (ALT/SGPT) 105 U/L (16-63) 95 U/L (16-63) Alkaline Phosphatase 116 U/L (46-116) 104 U/L (46-116) Total Protein 8.1 g/dL (6.4-8.2) 7.5 g/dL (6.4-8.2) Albumin 3.6 g/dL (3.4-5.0) 3.4 g/dL (3.4-5.0) White Blood Count 8.0 x10^3/uL (4.0-11.0) Red Blood Count 4.91 x10^6/uL (4.30-5.70) Hemoglobin 13.6 g/dL (13.0-17.5) Hematocrit 41.2 % (39.0-53.0) Mean Corpuscular Volume 84 fL (79-100) Mean Corpuscular Hemoglobin 28 pg (25-35) Mean Corpuscular Hemoglobin Concent 33 g/dL (31-37) Red Cell Distribution Width 14.1 % (11.5-14.5) Platelet Count 235 x10^3/uL (140-400) Neutrophils (%) (Auto) 46 % (31-73) Lymphocytes (%) (Auto) 42 % (24-48) Monocytes (%) (Auto) 9 % (0-9) Eosinophils (%) (Auto) 2 % (0-3) Basophils (%) (Auto) 1 % (0-3) Neutrophils # (Auto) 3.7 x10^3uL (1.8-7.7) Lymphocytes # (Auto) 3.4 x10^3/uL (1.0-4.8) Monocytes # (Auto) 0.7 x10^3/uL (0.0-1.1) Eosinophils # (Auto) 0.2 x10^3/uL (0.0-0.7) Basophils # (Auto) 0.1 x10^3/uL (0.0-0.2) Sodium Level 142 mmol/L (136-145) Potassium Level 3.9 mmol/L (3.5-5.1) Chloride Level 106 mmol/L (98-107) Carbon Dioxide Level 26 mmol/L (21-32) Anion Gap 10 (6-14) Blood Urea Nitrogen 12 mg/dL (8-26) Creatinine 1.1 mg/dL (0.7-1.3) Estimated GFR (Cockcroft-Gault) 87.2 BUN/Creatinine Ratio 11 (6-20) Glucose Level 98 mg/dL (70-99) Calcium Level 9.0 mg/dL (8.5-10.1) Albumin/Globulin Ratio 0.8 (1.0-1.7) Thyroid Stimulating Hormone (TSH) 3.032 uIU/mL (0.358-3.74) Laboratory Tests Test 09/11/18 04:35 09/11/18 05:00 White Blood Count 8.0 x10^3/uL (4.0-11.0) Red Blood Count 4.91 x10^6/uL (4.30-5.70) Hemoglobin 13.6 g/dL (13.0-17.5) Hematocrit 41.2 % (39.0-53.0) Mean Corpuscular Volume 84 fL (79-100) Mean Corpuscular Hemoglobin 28 pg (25-35) Mean Corpuscular Hemoglobin Concent 33 g/dL (31-37) Red Cell Distribution Width 14.1 % (11.5-14.5) Platelet Count 235 x10^3/uL (140-400) Neutrophils (%) (Auto) 46 % (31-73) Lymphocytes (%) (Auto) 42 % (24-48) Monocytes (%) (Auto) 9 % (0-9) Eosinophils (%) (Auto) 2 % (0-3) Basophils (%) (Auto) 1 % (0-3) Neutrophils # (Auto) 3.7 x10^3uL (1.8-7.7) Lymphocytes # (Auto) 3.4 x10^3/uL (1.0-4.8) Monocytes # (Auto) 0.7 x10^3/uL (0.0-1.1) Eosinophils # (Auto) 0.2 x10^3/uL (0.0-0.7) Basophils # (Auto) 0.1 x10^3/uL (0.0-0.2) Sodium Level 142 mmol/L (136-145) Potassium Level 3.9 mmol/L (3.5-5.1) Chloride Level 106 mmol/L (98-107) Carbon Dioxide Level 26 mmol/L (21-32) Anion Gap 10 (6-14) Blood Urea Nitrogen 12 mg/dL (8-26) Creatinine 1.1 mg/dL (0.7-1.3) Estimated GFR (Cockcroft-Gault) 87.2 BUN/Creatinine Ratio 11 (6-20) Glucose Level 98 mg/dL (70-99) Calcium Level 9.0 mg/dL (8.5-10.1) Total Bilirubin 0.3 mg/dL (0.2-1.0) Aspartate Amino Transf (AST/SGOT) 54 U/L (15-37) Alanine Aminotransferase (ALT/SGPT) 95 U/L (16-63) Alkaline Phosphatase 104 U/L (46-116) Total Protein 7.5 g/dL (6.4-8.2) Albumin 3.4 g/dL (3.4-5.0) Albumin/Globulin Ratio 0.8 (1.0-1.7) Thyroid Stimulating Hormone (TSH) 3.032 uIU/mL (0.358-3.74) Brief Hospital Course Patient is a 48-year-old gentleman with past medical history of hypertension jazzmine betes and dyslipidemia currently on statin therapy was initiated [place] until this morning when apparently he slipped lost his footing when he is left leg gave out and apparently he did report he describes as a lateral split of his legs. He experienced severe pain after the incident and was unable to move much. Somewhat the patient ended up with a GI workup including a lipase level which was quite high but the patient denies epigastric pain he denies radiation to the back. Of note is that the patient had a recent viral infection but he denies any jaundice no travels outside the country no dietary transgressions either. He d enies sick contacts. He denies chest pain palpitations no neurological deficits no peripheral edema Fell down the steps last night and did the splits, has significant burning pain to left side into left groin. Found with no abnormalities on testicular US and abdominal CT save for steatitis hepatosis. Seen by GI, related chronic constipation and BRBPR in his history as well. Found with Lipase of 900, however, ate food brought in from outside while NPO, no vomiting. Feeling better, lipase improved to normal today. Still with ALT/AST elevations, improving. Hepatitis panel negative. US shows steatohepatosis, no GB pathology, not visualized pancreas. Has an appetite. Fall, left-sided pain Right-sided pain, change in bowel habits (straining w/ blood), nausea, d izziness, fatigue Abnormal LFTs, elevated lipase Acid reflux, h/o DUs Hepatic steatosis Chronic pain on morphine no hard evidence for pancreatitis. needs colonoscopy as h/o this elevates risk for colorectal neoplasia; // outpatient setting. Hepatic steatosis transaminitis Greater than 30 minutes spent on discharge Discharge Information Condition at Discharge: Improved Follow Up: Weeks (2) Disposition/Orders: D/C to Home Scheduled Atorvastatin Calcium (Atorvastatin Calcium) 20 Mg Tablet, 20 MG PO HS for FOR CHOLESTEROL, #30 Ref 0 (Reported) Entered as Reported by: MIKAEL ROOT on 09/09/181957 Last Action: Continued on 09/10/18 0934 by ANTHONY PEREZ Cyclobenzaprine Hcl (Cyclobenzaprine Hcl) 10 Mg Tablet, 1 TAB PO QHS, #30 (Reported) Entered as Reported by: Feliberto Pierce on 05/01/172201 Last Action: Continued on 09/09/181611 by MIKAEL ROOT Duloxetine Hcl (Cymbalta) 60 Mg Capsule., 1 CAP PO DAILY, #90 Ref 3 (Reported) Entered as Reported by: Feliberto Pierce on 05/01/172201 Last Action: Converted on 09/09/181611 by MIKAEL ROOT Famotidine (Pepcid) 20 Mg Tablet, 20 MG PO BID for 14 Days, #28 Prescribed by: GURWINDER MELENDEZ on 05/21/17148 Last Action: Continued on 09/10/18933 by ANTHONY PEREZ Gabapentin (Gabapentin) 800 Mg Tablet, 800 MG PO BID, (Reported) Entered as Reported by: Feliberto Pierce on 05/01/172201 Last Action: Converted on 09/09/181611 by MIKAEL ROOT Lisinopril (Lisinopril) 40 Mg Tablet, 1 TAB PO DAILY for HTN, #30 Ref 5 (Reported) Entered as Reported by: MIKAEL ROOT on 09/09/181957 Last Action: Continued on 09/10/18933 by ANTHONY PEREZ Metoprolol Tartrate (Metoprolol Tartrate) 25 Mg Tablet, 1 TAB PO BID for HTN, #180 Ref 1 (Reported) Entered as Reported by: MIKAEL ROOT on 09/09/181957 Last Action: Continued on 09/10/18933 by ANTHONY PEREZ Multivitamin (One-Daily Multi-Vitamin) 1 Each Tablet, 1 EACH PO BID for supplement, (Reported) Entered as Reported by: MIKAEL ROOT on 09/09/181957 Last Action: Converted on 09/10/18933 by ANTHONY PEREZ Ondansetron Hcl (Zofran) 4 Mg Tablet, 1 TAB PO Q6HRS, #10 Ref 0 Prescribed by: GURWINDER MELENDEZ on 05/21/17148 [Pantoprazole] 40 MG TABLET., 40 MG PO DAILYAC for GERD for 30 Days, #30 Prescribed by: HEATH GILMAN MD on 09/11/18 1322 Scheduled PRN Ibuprofen (Ibuprofen) 800 Mg Tablet, 800 MG PO PRN Q6HRS PRN for INFLAMMATION, #20 Prescribed by: TRISTON MEDRANO D.O. on 03/21/162042 Ondansetron Hcl (Zofran) 4 Mg Tablet, 4 MG PO BID PRN for NAUSEA/VOMITING, #14 Prescribed by: TRISTON MEDRANO D.O. on 03/21/162042 Tramadol Hcl (Tramadol Hcl) 50 Mg Tablet, 50 MG PO Q6HRS PRN for PAIN for 6 Days, #24 Prescribed by: HEATH GILMAN MD on 09/11/18 1322 HEATH GILMAN MD September 11, 2018 13:29
[2018-09-11 15:00] VITALS: BP 121/77
[2018-09-11] MEDS: ENOXAPARIN 40 MG/0.4 ML SYRINGE. SQ SCH (16:00)
--- NOTE | 2018-09-11 19:29 | NUR ---
Pt was discharged to home at 1700 today in stable condition with all personal belongings after reviewing all pertinent information including education, medications, follow up and at home care. Pt was escorted by staff and driven home by his girlfriend
== END 2018-09-11 17:48 | disposition home or self-care (01) | DRG 538 ==
LOC: ER 10:56 → 4 NORTH 14:52
PROVIDERS: ADMIT Internal Medicine; ATTEND Internal Medicine
DX: S76.212A Strain of adductor muscle, fascia and tendon of left thigh, initial encounter (principal); Z91.018 Allergy to other foods; R74.0 Nonspecific elevation of levels of transaminase and lactic acid dehydrogenase [LDH]; E11.9 Type 2 diabetes mellitus without complications; E78.5 Hyperlipidemia, unspecified; F32.9 Major depressive disorder, single episode, unspecified; F41.9 Anxiety disorder, unspecified; G89.29 Other chronic pain; G43.909 Migraine, unspecified, not intractable, without status migrainosus; I10 Essential (primary) hypertension; K21.9 Gastro-esophageal reflux disease without esophagitis; K59.09 Other constipation; K76.0 Fatty (change of) liver, not elsewhere classified; W10.9XXA Fall (on) (from) unspecified stairs and steps, initial encounter; Z80.9 Family history of malignant neoplasm, unspecified; Z91.030 Bee allergy status; Z88.0 Allergy status to penicillin; Y93.89 Activity, other specified; Y92.89 Other specified places as the place of occurrence of the external cause; Y99.8 Other external cause status
CPT/HCPCS: 36415; 74177; 76705; 76870; 80053; 80076; 80307; 81001; 83540; 83550; 83690; 84443; 85025; 86705; 86709; 86803; 87340; 94760; 96374; 96375; G0480; J1650; J2270; J2405; J3010; J7030; Q9967; 99285-25